=== PATIENT | male | born 1945 | race Caucasian/White ===

== ENCOUNTER 2019-06-06 09:57 | Inpatient (IN) ==
[2019-06-06 11:03] LABS: ALLEN TEST YES; BE -2.2 mmoll (-3.0-3.0); BLOOD TYPE ARTERIAL; METHB 0.9 % (0.0-1.5); O2HB 91.1 % (95.0-99.0); PCO2(98.6) 34 mmHg (35-45); PO2(98.6) 62 mmHg (60-100); SAMPLE BLOOD; SAO2 93.6 % (95.0-100.0); THB 17.2 g/dL (11.5-17.4); pH(98.6) 7.41 (7.35-7.45)
[2019-06-06 11:09] LABS: MODALITY VENTIMASK
[2019-06-06 11:34] LABS: INR 1.06
[2019-06-06 11:35] LABS: PTT 33.4 Seconds (22.3-41.8)
[2019-06-06 11:41] LABS: ALB/GLOB RATIO 1.3; CALCIUM 10.1 mg/dL (8.8-10.2); CREATININE 1.9 mg/dL (0.7-1.2); POTASSIUM 4.5 mmol/L (3.5-5.1); TOTAL BILIRUBIN 1.99 mg/dL (0.20-1.00)
--- NOTE | 2019-06-06 11:41 | Diag Imaging Result Doc PS360 ---
EXAM: CHEST-1 VIEW HISTORY: SOB TECHNIQUE: Single view COMPARISON: None. FINDINGS: The lungs are hyperexpanded. No cardiomegaly. No pulmonary edema. Mild increased interstitial markings in the lower right lung. No pleural effusions identified. IMPRESSION: Small infiltrate or scarring in the right lung base. There is emphysema. Electronically signed by Tomas Gonzalez 06/06/2019 11:39 AM
[2019-06-06 12:08] LABS: BASO# 0.02 X1000 (0.0-0.2); BASO% 0.1 % (0.0-0.8); HEMATOCRIT 44.7 % (42.0-52.0); HEMOGLOBIN 14.3 g/dL (14.0-18.0); IMM GRAN# 0.06 X1000 (0.0-0.04); IMM GRAN% 0.3 % (0.0-0.5); LYMPH# 0.28 X1000 (1.2-3.4); LYMPH% 1.4 % (20.5-51.1); MCH 30.8 PG (27-31); MCV 96.1 FL (81-99); MONO% 8.5 % (1.7-9.3); MPV 12.8 FL (7.4-10.4); NEUT# 17.95 X1000 (1.4-6.5); NEUT% 89.7 % (42.2-75.2); PLT 233 X1000 (130-400); RBC 4.65 XMIL (4.7-6.1); RDW 14.4 % (11.5-14.5); WBC 20.01 X1000 (4.8-10.8)
[2019-06-06 12:12] LABS: BANDS 16 % (0-1); LYMPHS 2 % (21-51); MONO 6 % (1-9); SEGS 76 % (42-75)
[2019-06-06 12:13] LABS: HYPOCHROM 1+
[2019-06-06] MEDS ORDERED: ZOSYN 2.25 GM in NS 50 ML IV ONE (12:14)
[2019-06-06] MEDS ORDERED: NS 1,000 ML IV ONE (12:14)
[2019-06-06] MEDS ORDERED: NS 1,500 ML IV ONE (12:15)
[2019-06-06 12:24] LABS: CK INDEX 2.3 (0.0-2.5); CK-MB 10.05 ng/mL (0.0-5.0)
[2019-06-06] MEDS ORDERED: TYLENOL PO PRN (13:21)
[2019-06-06] MEDS ORDERED: QUELICIN IV ONE (14:06)
[2019-06-06] MEDS ORDERED: VERSED IV ONE ×2 (14:08→15:00)
[2019-06-06] MEDS ORDERED: AMIDATE ONE (14:14)
[2019-06-06] MEDS ORDERED: QUELICIN ONE (14:15)
[2019-06-06 14:23] LABS: AMYLASE 39 U/L (20-200); LIPASE 12 U/L (13-60)
[2019-06-06] MEDS ORDERED: VERSED 100 MG in NS 80 ML IV SCH (14:45)
[2019-06-06] MEDS ORDERED: VERSED ONE (15:09)
--- NOTE | 2019-06-06 15:14 | HISTORY AND PHYSICAL ---
PRIMARY CARE PROVIDER: Unknown. CHIEF COMPLAINT: Shortness of breath. HISTORY OF PRESENT ILLNESS: Mr. Earl Watson is a 74-year-old, male who has a history of dementia, so it is very difficult to get any information from him. He is in the room alone at this time due to the patient quarantine and has been having again a large amount of productive purulent green phlegm, wheezing, rhonchi, and it is reported by ER staff that he has had respiratory distress along with fever for at least 2 days. He is currently on a 50% venturi mask, continuing to desaturate. He has elevated white blood cell count, elevated lactate, infiltrates in the right lower lung. Dr. Gary was consulted by ER staff for further treatment evaluation and this is highly suspicious for community-acquired pneumonia and that is how it will be treated. He has been started on broad-spectrum antibiotics and given the fact that he is in respiratory distress and having desaturations, he will be intubated. PAST MEDICAL HISTORY: Only thing we could find out was dementia and hypertension. SURGICAL HISTORY: Unknown. SOCIAL HISTORY: Unknown other than he lives with his and has dementia and has been having falls. FAMILY HISTORY: Unknown. ALLERGIES: No known drug allergies. HOME MEDICATIONS: Currently none are listed but it is unknown at this time. REVIEW OF SYSTEMS: Ten point review of systems are complete. All are negative for those mentioned above in the HPI. The patient states that he feels like he is breathing better. He denies any pain. Denies fever. PHYSICAL EXAMINATION: VITAL SIGNS: Temperature 97.3 degrees, heart rate 93, respiratory rate 24, blood pressure 131/80. Last documented O2 saturation was 99% on a Venturi mask, but since this last documentation, he had desaturated into the mid to low 80s with increased respiratory rate. GENERAL: Mr. Earl Watson is a 74-year-old, male. He is in somewhat acute distress. He is unable to answer questions appropriately other than asking physically how he feels. He will answer that, but he is still unable to even give his name. HEENT: Atraumatic, normocephalic. Pupils equal, round, reactive to light. Mucous membranes are dry. NECK: Trachea midline. CARDIOVASCULAR: S1, S2. Regular rate and rhythm. No rubs, gallops, murmurs. No lower extremity edema, +1 dorsalis pedal pulses, +2 radial pulses. Negative JVD. Negative carotid bruits. PULMONARY: Mild rhonchi in the bases. Increased work of breathing. Mild accessory muscle use. At the moment, he is not tolerating the venturi mask. GASTROINTESTINAL: Abdomen soft, nontender, nondistended. Positive bowel sounds x4. EXTREMITIES: Moves all extremities equally. Decreased range of motion. NEUROLOGIC: Disoriented, unable to state name or any other questions other than how he is feeling, which could be part of the baseline of his dementia. SKIN: Warm, dry, intact but pale. LABORATORY DATA: White blood cells 20,000, hemoglobin 14, hematocrit 44, platelet count 233,000. INR is 1.06, PTT 33.4. ABGs on Venturi mask, pH 7.41, pCO2 is 34, PO2 62, bicarb 23, base excess - 2.2, saturation 91%, lactate 3.4. Sodium 142, potassium 4.5, BUN 36, creatinine is 1.9, glucose 135, calcium 10.1, bilirubin is 1.99, AST 127, ALT 126, alkaline phosphatase is 833, ammonia 18, CK 434. Troponin 56. Albumin 4.0, amylase 39, lipase 12. Lactate 4.7. Influenza A and B are negative. Blood cultures obtained. IMAGING: Chest x-ray, small infiltrate in the right lung base along with emphysema. ASSESSMENT AND PLAN: 1. Acute hypoxemic respiratory failure, most likely secondary to pneumonia that is located in the right lower lung. He has been started on broad-spectrum antibiotics. He has received IV fluids and currently is having to be advanced on his oxygenation and will be mechanically ventilated as he is in distress. Pulmonary is consulted. 2. Community-acquired pneumonia in the right lower lung. Again, he is on antibiotics and receiving IV fluids. 3. Dementia. 4. Hypertension. Home medications have not been reconciled yet. However, once he is intubated, he will be on propofol which will likely keep his blood pressure on the lower end. 5. Sepsis secondary to pneumonia. However, we do not have a urinalysis available to view as well. Blood cultures are pending. 6. Transaminitis with hyperbilirubinemia. We will get a hepatitis panel and abdominal ultrasound. Amylase, lipase is normal. 7. Acute kidney injury. Unknown if there is a history of kidney disease. Currently, BUN 36, creatinine is 1.9 with a GFR of 35. He is going to be on IV fluid hydration. 8. Deep venous thrombosis prophylaxis, sequential compression devices. Dictated by TUTU Lakhani for Sundar Russell MD cc: TUTU Lakhani MD
--- NOTE | 2019-06-06 15:30 | Diag Imaging Result Doc PS360 ---
EXAM: CHEST-1 VIEW 06/06/2019 HISTORY: sob, intubation TECHNIQUE: AP portable at 1517 COMMENT: There is an endotracheal tube with its tip slightly below the thoracic inlet. There is increased interstitial opacities in both lung bases similar in appearance to the previous study of 1131. IMPRESSION: Interstitial edema versus fibrosis. Electronically signed by Matias Villela 06/06/2019 3:28 PM
--- NOTE | 2019-06-06 15:58 | EKG Report ---
Test Performed on : 06/06/2019 12:54:27 PM Test Reason : REPEAT Blood Pressure : / mmHG Vent. Rate : 100 BPM Atrial Rate : 300 BPM P-R Int : 000 ms QRS Dur : 112 ms QT Int : 380 ms P-R-T Axes : 000 -64 052 degrees QTc Int : 490 ms Accelerated Junctional rhythm. with premature supraventricular complexes. and with frequent premature ventricular complexes. Left axis deviation Low voltage QRS Incomplete right bundle branch block Prolonged QT Abnormal ECG When compared with ECG of 06-JUN-2019 10:35, (Unconfirmed) Junctional rhythm. has replaced Sinus rhythm. Criteria for Septal infarct are no longer present Unconfirmed Result
--- NOTE | 2019-06-06 15:58 | EKG Report ---
Test Performed on : 06/06/2019 10:35:00 AM Test Reason : ED. No order in [place] Blood Pressure : / mmHG Vent. Rate : 097 BPM Atrial Rate : 097 BPM P-R Int : 142 ms QRS Dur : 112 ms QT Int : 362 ms P-R-T Axes : 083 -81 063 degrees QTc Int : 459 ms Sinus rhythm. with marked sinus arrhythmia. Low voltage QRS Incomplete right bundle branch block Left anterior fascicular block Septal infarct , age undetermined Abnormal ECG No previous ECGs available Unconfirmed Result
[2019-06-06 17:08] LABS: URINE SOURCE CLEAN CATCH
--- NOTE | 2019-06-06 17:27 | HISTORY AND PHYSICAL ---
ADDENDUM: The patient was seen and examined by me [id number]. At the moment of my physical exam this patient was already intubated. He is a 74 -year-old male and he has a medical history of dementia and hypertension. He came in with acute hypoxemic respiratory failure. He seems to be having right lower lung pneumonia, heavy thick secretions coming out from the tube, yellowish-green. This likely is a community-acquired pneumonia, but we need to go ahead and test this patient for COVID-19. The ER nurse has been instructed to do that. I do not have previous records from this patient. No family members at the bedside, and like I said, he was intubated, coarse breath sounds bilaterally with mild end expiratory wheezing. We will place the patient on propofol, broad-spectrum antibiotics. We will actually panculture this patient, he will be transferred to the ICU. I agree with the rest of the nurse practitioner's assessment and plan. cc: Sundar Russell MD
[2019-06-06 17:39] LABS: BILIRUBIN URINE NEGATIVE (NEGATIVE); BLOOD URINE MODERATE (NEGATIVE); COLOR YELLOW; GLUCOSE URINE NEGATIVE (NEGATIVE); KETONE URINE NEGATIVE (NEGATIVE); LEUKOCYTES URINE NEGATIVE (NEGATIVE); NITRITE URINE NEGATIVE (NEGATIVE); PH URINE 5.5; PROTEIN URINE 200 mg/dL (NEGATIVE); SP GRAVITY URINE 1.026; TURBIDITY URINE HAZY (CLEAR); UROBILINOGEN URINE NORMAL (NORMAL)
[2019-06-06 17:40] LABS: UR EPITHELIAL CELLS <10 /HPF (<10); URINE BACTERIA NEGATIVE /HPF; URINE RBC <10 /HPF (<10); URINE WBC <10 /HPF (<10)
--- NOTE | 2019-06-06 18:41 | PROVIDER DOCUMENTATION ---
This chart was entered by Shawna Kenyon Scribe, acting as scribe for Gab Phan CRNP. HPI-Respiratory General <Roly Coughlin - Last Filed: 06/06/19 18:40> - General Source: patient, EMS (first response) - History of Present Illness-Resp Quality of Pain: reports: aching Severity in ED: reports: moderate Onset/Duration: reports: 2 days ago Timing: reports: still present, constant, getting worse Exposure: reports: unknown cause Episode Frequency: occasional episodes Current Respiratory Medication Therapy: Initiated see nurses note Modifying Factors: worse with: exertion, coughing Associated Symptoms: reports: cough, fever/chills, muscle/bodyaches, nasal drainage, shortness of breath, wheezing Similar Symptoms Previously?: No Recently seen or treated by another doctor?: No <Gab Phan - Last Filed: 06/06/19 18:41> - General Chief Complaint: Shortness of Breath Stated Complaint: COUGH, FEVER Time Seen by Provider: 06/06/19 10:01 Allergies/Adverse Reactions: Patient Allergies Allergy/AdvReac Type Severity Reaction Status Date / Time No Known Allergies Allergy Verified 06/06/19 10:20 - History of Present Illness-Resp Nature of Presenting Problem: 74 yom presents to the ed via ems (first response) with multiple complaints per his . called 911 this morning due to him having 2 days worsening and constant of sob, body aches, generalized weaknessfever, chills and frequent falls. pt does not answer questions on exam and has purulent discharge from mouth and nose on exam. (Gab Phan) Review of Systems - Adult - REVIEW OF SYSTEMS - ADULT ROS:: ROS per family ( and ems) Constitutional: reports: see HPI, chills, fever Eyes: reports: no symptoms reported Ears, Nose, Mouth & Throat: reports: see HPI, other (nasal and mouth discharge) Cardiovascular: denies: chest pain, palpitations Respiratory: reports: see HPI, cough, shortness of breath, wheezing Gastrointestinal: reports: see HPI, poor appetite. denies: diarrhea, nausea, vomiting Genitourinary: reports: no symptoms reported Musculoskeletal: reports: see HPI, muscle aches Integumentary: reports: no symptoms reported Neurological: reports: see HPI, other (confusion). denies: dizziness/vertigo, headache/migraines Psychiatric: reports: no symptoms reported Endocrine: reports: no symptoms reported Hematologic/Lymphatic: reports: no symptoms reported Allergic/Immunologic: reports: no symptoms reported All Other Systems: Reviewed and Negative <Gab Phan - Last Filed: 06/06/19 18:41> Past History - Adult - PAST MEDICAL HISTORY-ADULT Review of Records: reports: Old Records Reviewed, Nursing Assessment Review, Medications Reviewed, Social history reviewed & non-contributory. Major Childhood Illnesses: reports: denies history Cardiovascular: reports: HTN Respiratory: reports: denies history Gastrointestinal: reports: denies history Genitourinary: reports: denies history Musculoskeletal: reports: denies history Hand Dominance: Right Handed Neurological: reports: dementia Psychiatric: reports: denies history Endocrine/Immune: reports: denies history Other Conditions: reports: denies history - PRIOR SURGERIES/PROCEDURES Surgical/Procedure History: reports: reviewed, not pertinent - IMMUNIZATION STATUS Childhood Immunizations: See Nurse Assessment Flu Vaccine: See Nurse Assessment - FAMILY HISTORY Family History: reviewed, not pertinent - SOCIAL HISTORY Smoking: non-smoker Substance Use: none/never Living Situation: family <Gab Phan - Last Filed: 06/06/19 18:41> Physical Exam-General - PHYSICAL EXAM-ADULT Exam Limited by: pt does not answer questions Initial Vital Signs Reviewed: Yes - CONSTITUTIONAL General Appearance: alert, moderate distress - EYES Eyes: PERRL/EOMI, pink conjunctivae - HEAD, EARS, NOSE, MOUTH & THROAT HENMT: moist mucous membranes, other (purlent drainage coming from sera and nose) - NECK Neck: non-tender, full range of motion, normal inspection - RESPIRATORY Respiratory: respiratory distress, rhonchi, wheezing, increased rate (28), other (mouth breathing) - CARDIOVASCULAR Cardiovascular: tachycardia (108) - CHEST (BREASTS) Chest/Breast: deferred - GASTROINTESTINAL (ABDOMEN) Abdominal Exam: normal bowel sounds, non tender, soft - GENITOURINARY Male Genitalia: deferred Rectal Exam: deferred Hemoccult Exam: deferred - LYMPHATIC Lymphatic: no adenopathy - MUSCULOSKELETAL Back Exam: no CVA tenderness, no vertebral tenderness Extremity: normal capillary refill, pelvis stable Peripheral Pulses: radial (R): 2+, radial (L): 2+, dorsalis-pedis (R): 2+, dorsalis-pedis (L): 2+ - SKIN Integumentary: normal color, normal turgor, warm/dry - PSYCHIATRIC Psych/Mental Status: negative: oriented x 3 (oriented to name only) <Gab Phan - Last Filed: 06/06/19 18:41> Progress - PLAN OF CARE/RESULTS Result Diagrams: 06/06/19 10:22 06/06/19 10:22 <Roly Coughlin - Last Filed: 06/06/19 18:40> - PLAN OF CARE/RESULTS Result Diagrams: 06/06/19 10:22 06/06/19 10:22 - REASSESSMENT Reassessment #1 Time Reassessed: 10:52 Status: unchanged (provider at bedside) Reassessment #2 Time Reassessed: 12:44 Status: worsening (pt is 82% on venti) - EKG 1 Time of EKG reading by physician:: 10:35 EKG Read and Signed by:: Roly Coughlin EKG Interpretation (*Must complete 3 of following elements*): Abnormal Rate: 97 Rhythm: sinus rhythm w/marked sinus arrhythmia [place]: normal QRS: RBB (incomplete), other (low voltage qrs/LAFB) [place] Interval: normal ST Wave: normal Comments: septal infarct, age undetermined - XRAY 1 XRAY: Bilateral XRAY Study: Chest Impression: See EMR Report (IMPRESSION: Small infiltrate or scarring in the right lung base. There is emphysema. Electronically signed by Tomas Gonzalez 06/06/2019 11:39 AM) - CONSULTS/PCP/HOSPITALIST Notification #1 *Consult/PCP/Hospitalist*: hospitalist Time Discussed: 13:10 (spoke with tk) Reason/Comments: will discuss with dr ennis and return call to intubate or not Consult Disposition: Will see in ED, Admit ([id number] called back and will accept the pt but wants dr shaw resp to consult) #2 Consult: dr shaw pulmonary Reason/Comments: phone consult <Gab Phan - Last Filed: 06/06/19 18:41> - PLAN OF CARE/RESULTS Progress/Plan/Lab Results: Vital Signs - 8 hr 06/06/19 13:09 06/06/19 13:15 06/06/19 13:30 Temperature 97.7 F Pulse Rate 93 H 78 77 Respiratory Rate 24 31 H 25 H Blood Pressure 131/80 129/76 124/76 O2 Sat by Pulse Oximetry 99 83 L 96 06/06/19 10:16 Influenza Screen - Final Nasopharyngeal Laboratory Results - last 24 hr 06/06/19 06/06/19 06/06/19 10:22 10:22 10:22 WBC RBC Hgb Hct MCV MCH MCHC RDW Std Deviation Plt Count MPV Immature Gran % (Auto) Neut % (Auto) Lymph % (Auto) [place] % (Auto) Eos % (Auto) Baso % (Auto) Immature Gran # (Auto) Neut # (Auto) Lymph # (Auto) [place] # (Auto) Eos # (Auto) Baso # (Auto) Segmented Neutrophils Band Neutrophils Lymphocytes Monocytes Hypochromia PT INR PTT (Actin FS) Specimen Type Sample Site pH pCO2 pO2 HCO3 Base Excess Oxyhemoglobin ABG O2 Sat (Calculated) ABG O2 Saturation ABG Carboxyhemoglobin ABG Methemoglobin Pavel Test A-a O2 Difference Total Hemoglobin Lactate Blood Gas Modality FiO2 % Sodium 142 Potassium 4.5 Chloride 96 L Carbon Dioxide 23 L Anion Gap 23 BUN 36 H Creatinine 1.9 H Estimated GFR/1.73 m2 35 BUN/Creatinine Ratio 19 Glucose 135 H Calculated Osmolality 293 Calcium 10.1 Total Bilirubin 1.99 H AST 127 H ALT 126 H Alkaline Phosphatase 883 H Ammonia Creatine Kinase 434 H Creatine Kinase Index 2.3 CK-MB (CK-2) 10.05 H Troponin T High Sens 56 H Total Protein 7.0 Albumin 4.0 Globulin 3.0 Albumin/Globulin Ratio 1.3 Amylase Lipase Plasma Lactate 4.7 H* 06/06/19 06/06/19 06/06/19 10:22 10:22 10:22 WBC 20.01 H RBC 4.65 L Hgb 14.3 Hct 44.7 MCV 96.1 MCH 30.8 MCHC 32.0 L RDW Std Deviation 14.4 Plt Count 233 MPV 12.8 H Immature Gran % (Auto) 0.3 Neut % (Auto) 89.7 H Lymph % (Auto) 1.4 L Knox % (Auto) 8.5 Eos % (Auto) 0.0 Baso % (Auto) 0.1 Immature Gran # (Auto) 0.06 H Neut # (Auto) 17.95 H Lymph # (Auto) 0.28 L Knox # (Auto) 1.70 H Eos # (Auto) 0.00 Baso # (Auto) 0.02 Segmented Neutrophils 76 H Band Neutrophils 16 H Lymphocytes 2 L Monocytes 6 Hypochromia 1+ PT 14.0 INR 1.06 PTT (Actin FS) 33.4 Specimen Type Sample Site pH pCO2 pO2 HCO3 Base Excess Oxyhemoglobin ABG O2 Sat (Calculated) ABG O2 Saturation ABG Carboxyhemoglobin ABG Methemoglobin Pavel Test A-a O2 Difference Total Hemoglobin Lactate Blood Gas Modality FiO2 % Sodium Potassium Chloride Carbon Dioxide Anion Gap BUN Creatinine Estimated GFR/1.73 m2 BUN/Creatinine Ratio Glucose Calculated Osmolality Calcium Total Bilirubin AST ALT Alkaline Phosphatase Ammonia Creatine Kinase Creatine Kinase Index CK-MB (CK-2) Troponin T High Sens Total Protein Albumin Globulin Albumin/Globulin Ratio Amylase 39 Lipase 12 L Plasma Lactate 06/06/19 06/06/19 10:45 11:30 WBC RBC Hgb Hct MCV MCH MCHC RDW Std Deviation Plt Count MPV Immature Gran % (Auto) Neut % (Auto) Lymph % (Auto) [place] % (Auto) Eos % (Auto) Baso % (Auto) Immature Gran # (Auto) Neut # (Auto) Lymph # (Auto) [place] # (Auto) Eos # (Auto) Baso # (Auto) Segmented Neutrophils Band Neutrophils Lymphocytes Monocytes Hypochromia PT INR PTT (Actin FS) Specimen Type ARTERIAL Sample Site L RADIAL pH 7.41 pCO2 34 L pO2 62 HCO3 23.0 Base Excess -2.2 Oxyhemoglobin 91.1 L ABG O2 Sat (Calculated) 22.0 ABG O2 Saturation 93.6 L ABG Carboxyhemoglobin 1.80 ABG Methemoglobin 0.9 Pavel Test YES A-a O2 Difference 67.0 Total Hemoglobin 17.2 Lactate 3.40 H Blood Gas Modality [place] FiO2 % 24.0 Sodium Potassium Chloride Carbon Dioxide Anion Gap BUN Creatinine Estimated GFR/1.73 m2 BUN/Creatinine Ratio Glucose Calculated Osmolality Calcium Total Bilirubin AST ALT Alkaline Phosphatase Ammonia 18 Creatine Kinase Creatine Kinase Index CK-MB (CK-2) Troponin T High Sens Total Protein Albumin Globulin Albumin/Globulin Ratio Amylase Lipase Plasma Lactate Orders Category Date Time Status Admit - [facility] Routine AdmDCTranf 06/06/19 13:21 Active Cardiac Monitoring NOW Care 06/06/19 10:16 Active IV Insertion NOW Care 06/06/19 10:16 Completed Isolation [Isolation Precautions Setup] NOW Care 06/06/19 13:10 Active NEWS Score >or=5:Order NEWS Bundle S.O. NOW Care 06/06/19 10:15 Active Notify Provider of NEWS Score NOW Care 06/06/19 10:16 Active Nursing- MD Consult Request ROUTINE Care 06/06/19 13:21 Completed Update & Confirm Home Medicati ROUTINE Care 06/06/19 13:21 Active Physician/Provider Consults Routine Cons 06/06/19 13:21 Ordered CHEST-1 VIEW [RAD] Stat Exams 06/06/19 10:16 Completed ABG [RESP] Routine Lab 06/06/19 10:45 Completed AMMONIA [CHEM] Stat Lab 06/06/19 11:30 Completed AMYLASE [CHEM] Stat Lab 06/06/19 10:22 Completed BLOOD CULTURE [BLDCUL] Stat Lab 06/06/19 10:40 Results CBC WITH DIFF [HEME] Stat Lab 06/06/19 10:22 Completed CK PROFILE [SP CHEM] Stat Lab 06/06/19 10:22 Completed COMPREHENSIVE METABOLIC PANEL [CHEM] Stat Lab 06/06/19 10:22 Completed Flu Swab [INFLUENZA SCREEN A/B] Stat Lab 06/06/19 10:16 Completed LACTATE, PLASMA [CHEM] Q3H Lab 06/06/19 10:22 Completed LACTATE, PLASMA [CHEM] Q3H Lab 06/06/19 16:25 Completed LACTATE, PLASMA [CHEM] Q3H Lab 06/06/19 16:30 Uncollected LIPASE [CHEM] Stat Lab 06/06/19 10:22 Completed PROTIME WITH INR [COAG] Stat Lab 06/06/19 10:22 Completed PTT [COAG] Stat Lab 06/06/19 10:22 Completed SPUTUM CULTURE WITH GRAM STAIN [RM] Routine Lab 06/06/19 13:21 Uncollected TROPONIN T HIGH SENSITIVITY Stat Lab 06/06/19 10:22 Completed URINALYSIS W/POSS RFLX CULT [URINALYSIS] Stat Lab 06/06/19 15:10 Completed 0.9% Sodium Chloride Inj [Ns] 1,000 ml Med 06/06/19 13:30 Active IV 75 mls/hr 0.9% Sodium Chloride Inj [Ns] 1,000 ml Med 06/06/19 12:14 Discontinued IV 999 mls/hr 0.9% Sodium Chloride Inj [Ns] 1,500 ml Med 06/06/19 12:15 Discontinued IV 999 mls/hr Acetaminophen [Tylenol] Med 06/06/19 13:21 Active 650 mg PO Q4H PRN PRN CefEPIME [Maxipime] 1 gm Med 06/06/19 13:30 Active 0.9% Sodium Chloride Inj [Ns] 50 ml IV Q12H Piperacillin/Tazobactam [Zosyn] 2.25 gm Med 06/06/19 12:14 Discontinued 0.9% Sodium Chloride Inj [Ns] 50 ml IV NOW O2 Per Protocol Stat Oth 06/06/19 10:16 Completed Oxygen Device Routine Oth 06/06/19 13:21 Completed Pulse Oximetry Routine Ot 06/06/19 13:21 Completed Transfer/Admit Order [TRANSFER] Routine Transfer 06/06/19 13:16 Ordered Procedures - INTUBATION Time of Intubation: 14:44 Intubation Method: orotracheal Equipment: ETT, Glidescope Tube Size (cm): 7.5 Pretreated with 100% Oxygen?: Yes Breath Sounds after Intubation: equal ETT Primary Tube Confirmation: Capnometry CO2 Change, Direct Visualization, C hest Rise and Fall, Tube placement verified on XRAY Intubation Complications: no complications Vent Settings: See Respiratory Therapy Notes <Gab Phan - Last Filed: 06/06/19 18:41> Departure <Roly Coughlin - Last Filed: 06/06/19 18:40> - Departure Date of Disposition Decision: 06/06/19 Time of Disposition Decision: 13:25 Certified Medical Emergency: Emergent - Critical Care Note This patient required my direct & personal management of CC.: Yes Total Time (mins): 42 Critical Care Statement: This patient required my direct personal management to treat or rule out processes, the absence of which, could potentiallly result in sudden, clinically significant life or limb threatening deterioration. <Gab Phan - Last Filed: 06/06/19 18:41> - Departure DIAGNOSIS: Pneumonia Qualifiers: Pneumonia type: due to unspecified organism Laterality: right Lung location: unspecified part of lung Qualified Code(s): J18.9 - Pneumonia, unspecified organism Sepsis Qualifiers: Sepsis type: sepsis due to unspecified organism Sepsis acute organ dysfunction status: unspecified Qualified Code(s): A41.9 - Sepsis, unspecified organism Disposition: ADMITTED INPATIENT 09 Condition: Critical Attestation - Physician/ CANDIDO Attestation The physician spent face to face time with patient:: Yes Advanced Practice Provider documentation review:: Supervising physician onsite and consulted in the evaluation and care of this patient. The physician did have a face to face encounter with the patient. <Roly Coughlin - Last Filed: 06/06/19 18:40> - Physician/ CANDIDO Attestation Patient care was provided by Advanced Practice Provider:: Yes Advanced Practice Provider:: Gab Phan Advanced Practice Provider documentation review:: The Mid-level provider docu mentation, treatment plan and medical decision making was reviewed by the physician who agrees with all treatment and medical decision making by the MLP. The physician spent face to face time with patient:: No Advanced Practice Provider documentation review:: Supervising physician onsite and consulted in the evaluation and care of this patient. The physician did not have a face to face encounter with the patient. <Gab Phan - Last Filed: 06/06/19 18:41> This chart was documented by the indicated scribe, (Shawna Kenyon Scribe) and accurately reflects the services I performed and decisions made by , Gab Lawson CRNP, as attested by the provider's signature.
[2019-06-06] MEDS: NS 1,000 ML IV SCH (18:47)
[2019-06-06] MEDS: ZYVOX 600 MG/D5W 600 MG/300 ML IVPB IV SCH (18:48)
[2019-06-06] MEDS: DIPRIVAN 1% 1,000 MG/100 ML BOTTLE IV SCH (20:08)
[2019-06-06] MEDS: MAXIPIME 1 GM in NS 50 ML IV SCH (20:16)
--- NOTE | 2019-06-06 20:25 | Diag Imaging Result Doc PS360 ---
EXAM: US ABDOMEN-COMPLETE 06/06/2019 HISTORY: elevated liver enzymes TECHNIQUE: Abdominal ultrasound COMMENT: The pancreatic head and body are normal in appearance. The aorta and inferior vena cava are normal where there are visible. There is a target appearing lesion adjacent to the diaphragm in the left hepatic lobe measuring 1.2 cm in diameter and another measuring 1.7 cm in diameter anterior to the inferior vena cava. Numerous smaller lesions are present in the liver is markedly inhomogeneous in appearance. There is antegrade flow in the portal vein. The gallbladder is clear and nontender. There is no evidence of biliary dilatation the common bile duct measuring 4 mm. The right kidney is atrophic in appearance and hyperechoic with the right kidney only measuring 6.1 cm in length. The left kidney is somewhat hypertrophic without evidence of hydronephrosis, and the spleen is not enlarged. The right kidney measures 12.5 cm in length. IMPRESSION: Extensive hepatic metastatic disease. Atrophy of the right kidney. Electronically signed by Matias Villela 06/06/2019 8:22 PM
[2019-06-06] MEDS: DUONEB (A & A) INH SCH (20:38)
--- NOTE | 2019-06-06 22:07 | PULMONOLOGY CONSULTATION ---
DATE: 06/06/2019 REASON FOR CONSULTATION: Respiratory failure. HISTORY OF PRESENT ILLNESS: Mr. Watson is a 74-year-old with history of dementia, who was brought to the emergency room by EMS. The patient's called 911 and reported patient with having two days of shortness of breath, weakness, fevers, chills, and falling. The patient has dementia and will not answer questions. He has not previously been to this hospital. The patient had gross purulence noted in his nose and mouth in the emergency room. He was initially placed on supplemental oxygen, but had progressive respiratory failure requiring intubation and mechanical ventilation. PAST MEDICAL HISTORY: 1. Dementia 2. Hypertension. SURGICAL HISTORY: Unknown. SOCIAL HISTORY: Unknown. FAMILY HISTORY: Unknown. MEDICATIONS: Medications from the external medical medication history only reveals lisinopril/hydrochlorothiazide. REVIEW OF SYSTEMS: Cannot be obtained. PHYSICAL EXAMINATION: General: Well-nourished, chronically ill-appearing male on mechanical ventilation. Sedation was not discontinued. Vital Signs: Blood pressure 103/72, heart rate 74, respiratory rate 18, oxygen saturation 96%. HEENT: Pupils are midpoint and reactive. Oropharynx appears dry. There are some secretions within the nasal passages. Chest: Reveals coarse rhonchi bilaterally. Cardiac Exam: S1, S2. Abdomen: Soft. Extremities: Without edema. LABORATORIES: White blood count 20,000, hemoglobin 14.3, platelet count 233,000. INR 1.06. Chemistry: Sodium 142, potassium 4.5, chloride 96, bicarbonate 23, BUN 36, creatinine 1.9, glucose 135, alkaline phosphatase 883, bilirubin 1.99, AST 127, ALT 126. IMAGING: Chest x-ray reveals endotracheal tube in good position with mild infiltrate at the right base. IMPRESSION: A 74-year-old with 1. Acute hypoxemic respiratory failure. 2. Community-acquired pneumonia with grossly purulent secretions in endotracheal tube along with significant leukocytosis. 3. Hypertension. 4. Elevated transaminases with cholestasis picture. 5. Acute kidney injury. RECOMMENDATION: 1. Continue full ventilatory support. 2. Continue current antibiotics, pending results of blood culture and sputum culture which has been requested. 3. Condition sedation for comfort. 4. Routine bronchial hygiene. 5. Agree with IV fluids. 6. Prognosis is guarded. TIME SPENT: With critical care management, one hour. cc: Buddy Gary MD
[2019-06-06] MEDS: PROTONIX IV SCH (23:20)
[2019-06-06] MEDS: SODIUM CHLORIDE 0.9% INJ SCH (23:20)
[2019-06-07] MEDS: DUONEB (A & A) INH SCH ×2 (00:26→05:09)
[2019-06-07] MEDS: DIPRIVAN 1% 1,000 MG/100 ML BOTTLE IV SCH ×3 (04:34→22:00)
[2019-06-07] MEDS: ZYVOX 600 MG/D5W 600 MG/300 ML IVPB IV SCH ×2 (04:36→15:42)
[2019-06-07 04:52] LABS: ALLEN TEST YES; BLOOD TYPE ARTERIAL; HCO3-(ACT) 21.8 mmoll (20.0-26.0); METHB 1.1 % (0.0-1.5); O2(CT) 18.2 mL/dL (15.0-23.0); PCO2(98.6) 31 mmHg (35-45); PO2(98.6) 169 mmHg (60-100); SAMPLE BLOOD; SAO2 99.6 % (95.0-100.0); SRATE 16 BPM; THB 13.1 g/dL (11.5-17.4); TVOL 450 mL; pH(98.6) 7.41 (7.35-7.45)
[2019-06-07 04:53] LABS: MODALITY VENTILATOR
[2019-06-07 06:19] LABS: HEMATOCRIT 37.2 % (42.0-52.0); HEMOGLOBIN 11.5 g/dL (14.0-18.0); MCHC 30.9 g/dL (33-37); MCV 97.1 FL (81-99); MPV 12.6 FL (7.4-10.4); RBC 3.83 XMIL (4.7-6.1); RDW 14.3 % (11.5-14.5); WBC 17.09 X1000 (4.8-10.8)
--- NOTE | 2019-06-07 06:34 | Diag Imaging Result Doc PS360 ---
CHEST-PORTABLE - 06/07/2019 INDICATION: respiratory failure COMPARISON: 06/06/2019 FINDINGS: Stable endotracheal tube in good position. Stable advanced COPD. There is been slight worsening in the ill-defined interstitial infiltrates in both lung bases. Heart size and pulmonary vascularity remain normal. IMPRESSION: Worsening ill-defined infiltrates in the lung bases. Compatible with pneumonia, viral infection, or pulmonary edema. Electronically signed by Good Costello 06/07/2019 6:31 AM
[2019-06-07 06:42] LABS: ALB/GLOB RATIO 0.7; ALBUMIN 2.5 g/dL (3.5-5.0); CALCIUM 8.7 mg/dL (8.8-10.2); CREATININE 1.4 mg/dL (0.7-1.2); MAGNESIUM 2.1 mg/dL (1.5-2.7); PHOSPHORUS 3.9 mg/dL (2.7-4.5); POTASSIUM 3.7 mmol/L (3.5-5.1); TOTAL BILIRUBIN 0.92 mg/dL (0.20-1.00); TOTAL PROTEIN 5.9 g/dL (6.3-8.3)
[2019-06-07] MEDS: NS 1,000 ML IV SCH ×2 (07:34→15:42)
[2019-06-07] MEDS: MAXIPIME 1 GM in NS 50 ML IV SCH ×2 (08:43→20:44)
[2019-06-07] MEDS: LOVENOX SUBQ SCH (08:43)
--- NOTE | 2019-06-07 09:44 | Diag Imaging Result Doc PS360 ---
CHEST-PORTABLE - 06/07/2019 9:19 AM INDICATION: OG placement verification COMPARISON: 5:26 AM FINDINGS: There is an orogastric tube entering the stomach. Recommend slight advancement. The endotracheal tube remains in good position. IMPRESSION: Orogastric tube is in the stomach, however slight advancement recommended, about 5 cm, for optimal placement. Electronically signed by Good Costello 06/07/2019 9:42 AM
[2019-06-07 11:10] LABS: HEPATITIS PROFILE ACUTE SEE COMMENTS
--- NOTE | 2019-06-07 12:19 | PROGRESS NOTE ---
DATE: 06/07/2019 SUBJECTIVE: The patient is still on mechanical ventilation and sedated. X-ray today showed worsening infiltrates in the lung bases, compatible with pneumonia, viral infection, and pulmonary edema. He has been placed on broad-spectrum antibiotics. I will go ahead and place an NG tube to start feeding this patient as well. I do not think he is going to be extubated any time soon. For now, we will continue with same management. OBJECTIVE: Vital Signs: Temperature 97.8 degrees, pulse 60, respiratory rate 23, blood pressure 110/69, oxygen saturation 99% on mechanical ventilation. HEENT: Head normocephalic, no trauma. PERRLA. Neck: Supple. No JVD. Central trachea. Chest: Coarse breath sounds bilaterally with rhonchi bilaterally as well. Abdomen: Soft. Extremities: No edema, no clubbing, no cyanosis. Neurological: The patient is on mechanical ventilation and sedated. LABORATORY: WBC 17, hemoglobin 11.5, hematocrit 37.2, platelets 188,000. Sodium 140, potassium 3.7, chloride 108, bicarbonate 19, BUN 39, creatinine 1.4, glucose 93, calcium 8.7, total bilirubin 0.9. AST 84, ALT 82, alkaline phosphatase 652, albumin 2.5. ASSESSMENT AND PLAN: 1. Acute hypoxemic respiratory failure, likely due to community-acquired pneumonia. Given his core presentation, also we are going to rule out Coronavirus Disease 2019. Continue with mechanical ventilation, broad-spectrum antibiotics, breathing treatment when able. Pulmonary Department on board. 2. Sepsis due to community-acquired pneumonia, seems to be bilaterally but mostly on the right side, continue with same treatment. 3. Dementia, aware. 4. Hypertension. His blood pressure actually has been in the lower side. We will continue with the same management for now. We will avoid blood pressure medication at this point. 5. Transaminitis, likely due to sepsis, this is getting better. 6. Acute kidney injury. His BUN went up a little bit from 36 to 39. Creatinine is trending down, and we will monitor. Continue with intravenous fluids. 7. Nutritional status. I will put in a nasogastric tube today and start feeding this patient. 8. Deep vein thrombosis prophylaxis with sequential compression devices. cc: Sundar Russell MD
--- NOTE | 2019-06-07 16:39 | PULMONOLOGY PROGRESS NOTE ---
DATE: 06/07/2019 SUBJECTIVE: The patient is on mechanical ventilation. He appears comfortable. He does not respond to painful stimuli. OBJECTIVE: Vital Signs: The patient has been afebrile for the last 24 hours. Blood pressure 95/65, heart rate 59, respiratory rate 15, oxygen saturation 99%. HEENT: Pupils are equal and reactive. Oropharynx appears clear. neck: Neck is supple. pulmonary: Chest reveals coarse rhonchi bilaterally. Cardiac: S1-S2. Abdomen: Abdomen is soft with diminished bowel sounds. Extremities: Without edema. LABORATORIES: White count reveals bibasilar infiltrates which are slightly worse than yesterday. White blood count 17.09, hemoglobin 11.5, platelet count 188,000. Sodium 140, potassium 3.7, chloride 108, bicarbonate 19, BUN 39, creatinine 1.4, bilirubin 0.92, AST 84, ALT 82, alkaline phosphatase 652. IMPRESSION: A 74-year-old with: 1. Acute hypoxemic respiratory failure. 2. Community-acquired pneumonia with bilateral infiltrates. The patient may have a component of aspiration. 3. Elevated transaminases with an alkaline phosphatase predominant. This has improved. 4. Acute renal injury with decreasing creatinine. PLAN: 1. Continue full ventilatory support. Tidal volumes have been adjusted. 2. Continue current antibiotic regimen. 3. Continue IV fluids. Consider Clinimix. 4. Continue Lovenox. We will consider increasing dose if the creatinine continues to improve. Time spent in critical care management: 40 minutes cc: Buddy Gary MD MTDD
[2019-06-07] MEDS: SODIUM CHLORIDE 0.9% INJ SCH (20:44)
[2019-06-07] MEDS: PROTONIX IV SCH (20:44)
[2019-06-08 04:46] LABS: BE -3.8 mmoll (-3.0-3.0); BLOOD TYPE ARTERIAL; HCO3-(ACT) 21.9 mmoll (20.0-26.0); METHB 1.1 % (0.0-1.5); O2(CT) 26.6 mL/dL (15.0-23.0); O2HB 97.4 % (95.0-99.0); PCO2(98.6) 33 mmHg (35-45); PO2(98.6) 144 mmHg (60-100); SAMPLE BLOOD; SAO2 99.5 % (95.0-100.0); SRATE 15 BPM; THB 19.3 g/dL (11.5-17.4); TVOL 600 mL; pH(98.6) 7.39 (7.35-7.45)
[2019-06-08 04:49] LABS: ALLEN TEST YES; MODALITY VENTILATOR
[2019-06-08] MEDS: ZYVOX 600 MG/D5W 600 MG/300 ML IVPB IV SCH ×2 (04:58→16:54)
[2019-06-08 05:07] LABS: HEMATOCRIT 35.1 % (42.0-52.0); HEMOGLOBIN 11.4 g/dL (14.0-18.0); MCH 31.5 PG (27-31); MCHC 32.5 g/dL (33-37); MPV 12.4 FL (7.4-10.4); RBC 3.62 XMIL (4.7-6.1); RDW 14.4 % (11.5-14.5); WBC 20.59 X1000 (4.8-10.8)
[2019-06-08 05:14] LABS: ALB/GLOB RATIO 0.8; ALBUMIN 2.6 g/dL (3.5-5.0); CREATININE 1.4 mg/dL (0.7-1.2); MAGNESIUM 2.2 mg/dL (1.5-2.7); PHOSPHORUS 2.4 mg/dL (2.7-4.5); POTASSIUM 3.5 mmol/L (3.5-5.1); TOTAL BILIRUBIN 0.67 mg/dL (0.20-1.00); TOTAL PROTEIN 5.9 g/dL (6.3-8.3)
[2019-06-08] MEDS: DIPRIVAN 1% 1,000 MG/100 ML BOTTLE IV SCH (05:45)
[2019-06-08] MEDS: NS 1,000 ML IV SCH ×2 (05:45→11:59)
[2019-06-08] MEDS: DUONEB (A & A) INH SCH (06:30)
--- NOTE | 2019-06-08 08:42 | Diag Imaging Result Doc PS360 ---
EXAM: CHEST-PORTABLE 06/08/2019 HISTORY: respiratory failure TECHNIQUE: AP portable at 0541 COMMENT: There is interstitial opacity in both lung bases which has not changed since 06/07/2019. The endotracheal tube remains in place. There is an NG tube which passes below the diaphragm into the stomach. IMPRESSION: Pulmonary edema. Electronically signed by Matias Villela 06/08/2019 8:40 AM
[2019-06-08] MEDS: LOVENOX SUBQ SCH (08:53)
[2019-06-08] MEDS: MAXIPIME 1 GM in NS 50 ML IV SCH ×2 (08:53→20:51)
--- NOTE | 2019-06-08 12:45 | PROGRESS NOTE ---
DATE: 06/08/2019 SUBJECTIVE: The patient is still intubated and on mechanical ventilation. No acute events overnight. We have started this patient on nutrition through the OG tube, and he seems to be tolerating that. X-ray showed some pulmonary edema. I will decrease the rate of the normal saline since he is getting now nutrition, and I will continue with the same management. OBJECTIVE: Vital Signs: Temperature 98.3 degrees, pulse 67, respiratory rate 23, blood pressure 112/69, oxygen saturation 100% on mechanical ventilation. HEENT: Head normocephalic, no trauma. PERRLA. Neck: Supple. No JVD. No masses. Central trachea. Chest: Coarse breath sounds bilaterally with rhonchi bilaterally as well. Abdomen: Soft. Extremities: No edema, no clubbing, no cyanosis. Neurological: The patient is on mechanical ventilation and sedated. LABORATORY: WBC 20.5, hemoglobin 11.4, hematocrit 25.1, platelets 188,000. Sodium 139, potassium 3.5, chloride 107, bicarbonate 20, BUN 36, creatinine 1.4, glucose 124, calcium 9, total bilirubin 0.6. AST 84, ALT 76, alkaline phosphatase 700, albumin 2.6. ASSESSMENT AND PLAN: 1. Acute hypoxemic respiratory failure, likely due to community-acquired pneumonia. We are also going to rule out Coronavirus Disease 2019 on this patient, but this is unlikely. We will continue with mechanical ventilation, broad-spectrum antibiotics, breathing treatment and oxygen supplementation. Pulmonary Department on board. 2. Sepsis due to community-acquired pneumonia. Continue with the same management. 3. Dementia, aware. 4. Hypertension. Actually, the blood pressure seems to be in the lower side. Abdomen seems to be normal. Initially was in the lower side in the 90s, but now seems to be more stable. 5. Transaminitis, likely due to sepsis, stable, about the same compared with yesterday. 6. Acute kidney injury. BUN improved a little bit compared with yesterday. Creatinine is about the same. His urine output is not great. It is actually low. Continue with intravenous fluids. 7. Nutritional status, continue with nutrition through the nasogastric tube. CRITICAL CARE TIME: 35 minutes. cc: Sundar Russell MD
[2019-06-08 14:55] LABS: ALLEN TEST YES; BE -2.9 mmoll (-3.0-3.0); BLOOD TYPE ARTERIAL; HCO3-(ACT) 22.6 mmoll (20.0-26.0); METHB 1.2 % (0.0-1.5); O2(CT) 27.1 mL/dL (15.0-23.0); O2HB 96.6 % (95.0-99.0); PCO2(98.6) 31 mmHg (35-45); PO2(98.6) 116 mmHg (60-100); SAMPLE BLOOD; SAO2 98.7 % (95.0-100.0); THB 19.9 g/dL (11.5-17.4); pH(98.6) 7.42 (7.35-7.45)
[2019-06-08 14:56] LABS: MODALITY VENTILATOR
--- NOTE | 2019-06-08 18:56 | PULMONOLOGY PROGRESS NOTE ---
DATE: 06/08/2019 SUBJECTIVE: The patient's sedation has been held. He does move, but he does not open his eyes or follow commands. OBJECTIVE: Vital Signs: The patient has been afebrile for the last 24 hours. Blood pressure 146/83, heart rate 77, respiratory rate 20. Oxygen saturation 100%. HEENT: Pupils are equal and reactive. Oropharynx appears clear. Neck: Is supple. Chest: Reveals rhonchi bilaterally. Cardiac: S1-S2. Abdomen: Aoft with diminished bowel sounds. Extremities: Without edema. LABORATORIES: Chest x-ray reveals mild increased interstitial edema. White blood count 20.59, hemoglobin 11.4, platelet count 188,000. Sodium 139, potassium 3.5, chloride 107, bicarbonate 20, BUN 36, creatinine 1.4, albumin 5.0. Arterial blood gas at 4:35 this morning pH 7.39, pCO2 of 33, pO2 of 144. Arterial blood gas after 4 hour CPAP trial pH 7.42, pCO2 of 31, PO2 of 116. IMPRESSION: A 74-year-old with 1. Acute hypoxemic respiratory failure. 2. Community-acquired pneumonia. 3. Abnormal liver function studies which remained stable. 4. Acute renal injury. 5. Dementia. DISCUSSION: A 74-year-old with problems outlined above. The patient has been on a weaning trial today and has done relatively well, but he has a very poor cough/gag reflex. His mental status is poor. His sedation will be held. He will be followed overnight to see if his mental status will improve to help increase chances of successful extubation. PLAN: 1. Hold sedation. 2. Continue ventilatory support. 3. Continue current antibiotic regimen. 4. Repeat weaning trial tomorrow. Time spent in critical care management: 40 minutes cc: Buddy Gary MD [facility] HOSPITALThelma
[2019-06-08] MEDS: PROTONIX IV SCH (20:51)
[2019-06-08] MEDS: SODIUM CHLORIDE 0.9% INJ SCH (20:51)
[2019-06-09] MEDS: ZYVOX 600 MG/D5W 600 MG/300 ML IVPB IV SCH ×2 (04:16→17:00)
[2019-06-09 05:03] LABS: ALLEN TEST YES; BE -2.9 mmoll (-3.0-3.0); BLOOD TYPE ARTERIAL; HCO3-(ACT) 22.6 mmoll (20.0-26.0); METHB 1.3 % (0.0-1.5); O2(CT) 16.4 mL/dL (15.0-23.0); O2HB 95.8 % (95.0-99.0); PCO2(98.6) 38 mmHg (35-45); PO2(98.6) 99 mmHg (60-100); SAMPLE BLOOD; SAO2 98.6 % (95.0-100.0); THB 12.1 g/dL (11.5-17.4); pH(98.6) 7.37 (7.35-7.45)
[2019-06-09 05:04] LABS: MODALITY VENTILATOR
[2019-06-09 06:37] LABS: HEMATOCRIT 35.9 % (42.0-52.0); HEMOGLOBIN 11.4 g/dL (14.0-18.0); MCHC 31.8 g/dL (33-37); MCV 97.6 FL (81-99); MPV 12.6 FL (7.4-10.4); RBC 3.68 XMIL (4.7-6.1); RDW 14.5 % (11.5-14.5); WBC 20.34 X1000 (4.8-10.8)
[2019-06-09 06:57] LABS: AGAP 13; ALB/GLOB RATIO 0.6; ALBUMIN 2.4 g/dL (3.5-5.0); ALKALINE PHOSPHATASE 743 U/L (32-122); BUN 28 mg/dL (8-22); CALCIUM 8.9 mg/dL (8.8-10.2); CHLORIDE 110 mmol/L (98-107); COSMO 292; ESTIMATED GFR > 60; GLUCOSE 96 mg/dL (70-104); GOT 88 U/L (10-34); GPT 75 U/L (10-44); POTASSIUM 3.4 mmol/L (3.5-5.1); SODIUM 144 mmol/L (136-145); TCO2 21 mmol/L (25-35); TOTAL BILIRUBIN 1.06 mg/dL (0.20-1.00); TOTAL PROTEIN 6.1 g/dL (6.3-8.3)
--- NOTE | 2019-06-09 07:19 | Diag Imaging Result Doc PS360 ---
EXAM: CHEST-PORTABLE 06/09/2019 HISTORY: respiratory failure TECHNIQUE: AP portable at 0535 COMMENT: There is an endotracheal tube with its tip thoracic inlet. There is an NG tube which passes below the diaphragm. There are interstitial opacities in both lung bases which have not changed appreciably since 06/08/2019. There has been no appreciable change since 06/07/2019. IMPRESSION: Interstitial pulmonary edema and/or fibrosis. Electronically signed by Matias Villela 06/09/2019 7:17 AM
[2019-06-09] MEDS: LOVENOX SUBQ SCH (08:35)
[2019-06-09] MEDS: MAXIPIME 1 GM in NS 50 ML IV SCH ×2 (08:35→21:17)
[2019-06-09] MEDS: NS 1,000 ML IV SCH (09:40)
--- NOTE | 2019-06-09 10:47 | PROGRESS NOTE ---
DATE: 06/09/2019 SUBJECTIVE: The patient is still intubated and on mechanical ventilation. When I saw the patient, he was not on any sedation and the ventilator was in the BiPAP mode, but the patient was really lethargic. He was able to open his eyes on and off. He was able to move a little bit his head when I called his name, but he is not following commands. His nutrition through the NG tube has been stopped momentarily because he is going to be on a weaning trial. X-ray showed pulmonary edema and/or fibrosis. OBJECTIVE: Vital Signs: Temperature 97.9 degrees, pulse 71, respiratory rate 22, blood pressure 141/81, oxygen saturation 99 on the CPAP machine mechanical ventilation. HEENT: Head normocephalic. No trauma. PERRLA. Neck: Supple. No JVD. No masses. Central trachea. Chest: Coarse breath sounds bilaterally with rhonchi bilaterally as well. Abdomen: Soft. Extremities: No edema. Neurological: This patient is on mechanical ventilation. He is not getting sedation at this moment. He is able to open his eyes a little bit, but he is really lethargic. He was able to move his head when I called his name, but is not consistent. He is not following commands for me. LABORATORY DATA: WBC 20.3, hemoglobin 11.4, hematocrit 35.9, platelets 210,000. Sodium 144, potassium 3.4, chloride 110, bicarbonate 21, BUN 28, creatinine 1, glucose 96, calcium 8.9, total bilirubin 1, AST 88, ALT 75, alkaline phosphatase 743. ASSESSMENT AND PLAN: 1. Acute hypoxemic respiratory failure likely due to community-acquired pneumonia. We are also ruling out coronavirus on this patient, but this is unlikely. We will continue with mechanical ventilation for now. We are trying to do weaning trials. This patient is really lethargic. His urine output is getting better as well as the BUN and creatinine. Liver function tests about the same. 2. Sepsis due to community-acquired pneumonia. Continue with same management. 3. Dementia, aware. 4. Hypertension. Actually the blood pressure seems to be stable. 5. Transaminitis, likely due to sepsis, stable compared with yesterday. No changes. 6. Acute kidney injury. BUN and creatinine improving as well as the urine output. Continue with same treatment. 7. Nutritional status. He has been getting nutrition through the NG tube. He is not having residuals. At this moment, he is not getting nutrition because we are going to try to wean this patient off the ventilator. cc: Sundar Russell MD
--- NOTE | 2019-06-09 19:15 | PULMONOLOGY PROGRESS NOTE ---
DATE: 06/09/2019 SUBJECTIVE: The patient opens his eyes when his name is called. He appears to be comfortable and has been on a spontaneous breathing trial overnight. OBJECTIVE: Vital Signs: The patient has been afebrile for the last 24 hours. Blood pressure 142/78, heart rate 81, respiratory rate 23, oxygen saturation 99%. HEENT: Pupils are equal and reactive. Oropharynx evaluation is limited but appears clear. Neck: Supple. Chest: Reveals rhonchi bilaterally. Cardiac exam: S1, S2. Abdomen: Soft. Extremities: Reveal trace edema. LABORATORY DATA: Arterial blood gas reveals a pH of 7.37, pCO2 of 38, pO2 of 99 on spontaneous breathing trial. Sodium 144, potassium 3.4, chloride 110, bicarbonate 21, BUN 28, creatinine 1.0, white blood count 20,000, hemoglobin 11.4, platelet count 210,000. MICROBIOLOGY: Reveals Haemophilus influenzae, which is sensitive to ampicillin. IMAGING: Chest x-ray reveals infiltrates in both lung bases without significant change. IMPRESSION: A 74-year-old with: 1. Acute hypoxemic respiratory failure. 2. Haemophilus influenzae pneumonia. 3. Abnormal liver function studies. 4. Acute renal injury. 5. Dementia. DISCUSSION: A 74-year-old with problems outlined above. The patient has been on a spontaneous breathing trial through the night, which he has tolerated. PLAN: 1. Continue current antibiotic regimen. 2. Extubate this morning. 3. Bronchial hygiene. Time spent in critical care management evaluating patient before and after extubation: Greater than 30 minutes. x cc: Buddy Gary MD MTDD
[2019-06-09] MEDS: PROTONIX IV SCH (21:18)
[2019-06-09] MEDS: SODIUM CHLORIDE 0.9% INJ SCH (21:18)
[2019-06-10] MEDS: ZYVOX 600 MG/D5W 600 MG/300 ML IVPB IV SCH (03:32)
[2019-06-10 04:31] LABS: ALLEN TEST YES; BE -2.7 mmoll (-3.0-3.0); BLOOD TYPE ARTERIAL; HCO3-(ACT) 22.8 mmoll (20.0-26.0); O2(CT) 20.9 mL/dL (15.0-23.0); O2HB 96.9 % (95.0-99.0); PCO2(98.6) 40 mmHg (35-45); PO2(98.6) 142 mmHg (60-100); SAMPLE BLOOD; SAO2 99.4 % (95.0-100.0); THB 15.2 g/dL (11.5-17.4); pH(98.6) 7.36 (7.35-7.45)
[2019-06-10 04:32] LABS: MODALITY CANNULA
[2019-06-10 06:10] LABS: HEMATOCRIT 35.5 % (42.0-52.0); HEMOGLOBIN 10.9 g/dL (14.0-18.0); MCH 30.2 PG (27-31); MCHC 30.7 g/dL (33-37); MCV 98.3 FL (81-99); MPV 11.7 FL (7.4-10.4); RBC 3.61 XMIL (4.7-6.1); RDW 14.3 % (11.5-14.5); WBC 16.57 X1000 (4.8-10.8)
--- NOTE | 2019-06-10 06:13 | Diag Imaging Result Doc PS360 ---
EXAM: CHEST-PORTABLE HISTORY: respiratory failure TECHNIQUE: Two views COMPARISON: 06/09/2019 FINDINGS: The lungs are well expanded. No cardiomegaly. Mild vascular distention. Worsening basilar infiltrates. There are tiny pleural effusions. A nasogastric tube overlies the esophagus and stomach. IMPRESSION: Mild interval worsening Electronically signed by Tomas Gonzalez 06/10/2019 6:11 AM
[2019-06-10 06:22] LABS: AGAP 13; ALB/GLOB RATIO 0.8; ALBUMIN 2.4 g/dL (3.5-5.0); ALKALINE PHOSPHATASE 708 U/L (32-122); BUN 22 mg/dL (8-22); CALCIUM 8.7 mg/dL (8.8-10.2); CHLORIDE 107 mmol/L (98-107); COSMO 285; CREATININE 0.8 mg/dL (0.7-1.2); ESTIMATED GFR > 60; GLUCOSE 104 mg/dL (70-104); GOT 83 U/L (10-34); GPT 69 U/L (10-44); POTASSIUM 3.5 mmol/L (3.5-5.1); SODIUM 141 mmol/L (136-145); TCO2 21 mmol/L (25-35); TOTAL PROTEIN 5.5 g/dL (6.3-8.3)
[2019-06-10] MEDS: MAXIPIME 1 GM in NS 50 ML IV SCH ×2 (07:37→20:35)
[2019-06-10] MEDS: NS 1,000 ML IV SCH (07:37)
--- NOTE | 2019-06-10 08:46 | PROGRESS NOTE ---
DATE: 06/10/2019 SUBJECTIVE: The patient has been successfully extubated yesterday. He is requiring 4 L of oxygen by nasal cannula. He is still somehow lethargic, but he answered very basic questions to me. He is not receiving any nutrition through NG tube yet; that has been held. OBJECTIVE: Vital Signs: Temperature 98.6 degrees, heart rate 61, respiratory rate 24, blood pressure 129/73, O2 saturation 100% on 4 L nasal cannula. General Examination: This is a chronically ill-looking, 74-year-old male, lying in bed in no acute distress. HEENT: Head is normocephalic, atraumatic. Neck: No JVD noted. No carotid bruits. No lymphadenopathy. No thyromegaly. Cardiovascular exam: S1, S2 heard. No murmurs, gallops, or rubs. Regular rate and rhythm. Respiratory exam: Coarse breath sounds still noted in both pulmonary fofana, mostly in both bases. Patient is not using any accessory muscles or having work of breathing. Abdomen: Soft. Nontender to palpation. Bowel sounds present. No organomegaly. Extremities: No clubbing, cyanosis or edema. Peripheral pulses present in both legs. Neurological exam: Patient is sleepy, but responds to verbal stimuli. The patient reports not being in pain. LABORATORY DATA: White cell count 16.57, hemoglobin 10.9, hematocrit 35.5, platelets 211. ABG that shows pH 7.36 with pCO2 40, PO2 142, and that was taken on nasal cannula 4 L/minute. BMP reveals normal creatinine with calcium 8.7. AST 83, ALT 69, alkaline phosphatase 708. ASSESSMENT AND PLAN: 1. Acute hypoxemic respiratory failure secondary to community-acquired pneumonia. The patient has been successfully extubated yesterday. Now requiring 4 liters of oxygen by nasal cannula. I think we will continue with the same management. Currently, he is on cefepime and Zyvox. On his white cell count, I see definite improvement from 20,000 to 16,000 today. The sputum culture reveals Haemophilus influenza. Will continue at this point only with cefepime. We will stop Zyvox. 2. Haemophilus influenza pneumonia on antibiotics as above. 3. Transaminitis. At admission, he was ordered abdominal ultrasound which reveals extensive metastatic disease with atrophy to the right kidney. At this point once this patient is more awake, we will consult Oncology. Apparently as per history and physical, he has not been diagnosed with any metastatic disease. 4. Hypertension. Blood pressure is under control. We will continue with the same management. 5. Acute kidney injury. That condition is completely resolved. Creatinine and BUN are completely back to normal. 6. Nutritional status: The patient is still sleepy. The patient has a nasogastric tube, but those feedings have not been restarted yet. We are going to check swallow test to see if this patient is safe to start him by mouth. He will start nutrition with clear liquid diet. If not, we will start nasogastric tube feedings. DISPOSITION: At this time, the patient is much more stable, so we will transfer him to the progressive care unit today. cc: Aditya Mckoy MD
--- NOTE | 2019-06-10 14:13 | PULMONOLOGY PROGRESS NOTE ---
DATE: 06/10/2019 SUBJECTIVE: Mr. Watson is lethargic, although he is awake. He does answer questions. He states he is feeling some better than he did last night. OBJECTIVE: Vital Signs: Blood pressure is 121/76, heart rate of 61, respirations 16, temperature 98.1 degrees axillary with O2 saturations 98 to 100 percent on 3 L nasal cannula. Eyes: Pupils are equal, round, react to light. EOMs are intact. Sclerae anicteric. HENT: Head is normocephalic, atraumatic. Mucous membranes are moist. Neck: Supple with trachea midline. Cardiovascular: Regular rate and rhythm. S1 and S2 appreciated. He does have some trace pretibial edema bilateral. Reports calves are nontender bilateral. Pulmonary: Rhonchi scattered throughout that somewhat clear to cough. Chest rises and falls symmetric with respiration. Gastrointestinal: Abdomen is soft, nontender, nondistended. Bowel sounds in all 4 quadrants. Neurologic: He is lethargic, but oriented. LABORATORY DATA: WBC is 16 with hemoglobin 10.9, hematocrit 35.5, and platelets 211,000. Sodium 141, potassium 3.5, BUN 22, creatinine 0.8 with a glucose of 104, AST 83, ALT 69, alkaline phosphatase of 708. ABGs pH is 7.36 with a pCO2 of 40, PO2 142, and bicarb of 22.8. He is on 4 L nasal cannula. Chest x-ray is reveals worsening basilar infiltrates. ASSESSMENT: This is a 74-year-old gentleman with 1. Acute hypoxemic respiratory failure. 2. Haemophilus influenzae pneumonia. 3. Abnormal liver function studies. 4. Acute renal injury. 5. Dementia. PLAN: 1. We will continue with the current antibiotic regimen of cefepime. 2. Continue with bronchial hygiene. 3. Acid suppression. Continue Protonix. Dictated by TUTU Gross for Buddy Gary MD cc: TUTU Gross MD
[2019-06-10] MEDS: PROTONIX IV SCH (20:34)
[2019-06-11 05:29] LABS: ALLEN TEST YES; BE -2.2 mmoll (-3.0-3.0); BLOOD TYPE ARTERIAL; HCO3-(ACT) 23.1 mmoll (20.0-26.0); METHB 1.3 % (0.0-1.5); O2HB 95.4 % (95.0-99.0); PCO2(98.6) 35 mmHg (35-45); PO2(98.6) 94 mmHg (60-100); SAMPLE BLOOD; SAO2 97.6 % (95.0-100.0); THB 20.9 g/dL (11.5-17.4)
[2019-06-11 05:30] LABS: MODALITY CANNULA
[2019-06-11] MEDS: NS 1,000 ML IV SCH (06:25)
[2019-06-11 06:31] LABS: HEMATOCRIT 37.9 % (42.0-52.0); HEMOGLOBIN 11.9 g/dL (14.0-18.0); MCH 31.1 PG (27-31); MCHC 31.4 g/dL (33-37); MPV 11.8 FL (7.4-10.4); RBC 3.83 XMIL (4.7-6.1); RDW 13.9 % (11.5-14.5); WBC 14.69 X1000 (4.8-10.8)
[2019-06-11 06:35] LABS: AGAP 13; ALBUMIN 2.5 g/dL (3.5-5.0); BUN 22 mg/dL (8-22); CHLORIDE 114 mmol/L (98-107); COSMO 302; CREATININE 0.8 mg/dL (0.7-1.2); ESTIMATED GFR > 60; GLUCOSE 83 mg/dL (70-104); POTASSIUM 3.6 mmol/L (3.5-5.1); SODIUM 151 mmol/L (136-145); TCO2 24 mmol/L (25-35)
--- NOTE | 2019-06-11 07:52 | Diag Imaging Result Doc PS360 ---
EXAM: CHEST-PORTABLE INDICATION: respiratory failure TECHNIQUE: One view COMPARISON: 06/10/2019 FINDINGS: There appears to be slight improvement of consolidation at the left lower lung zone. Consolidation at the right lower lung zone is essentially stable. There are essentially stable small effusions. No new consolidation is identified. Cardiac silhouette is stable. IMPRESSION: Interval marginal improvement of consolidation on the left. Stable chest, otherwise. Electronically signed by Esteban Jeter 06/11/2019 7:50 AM
[2019-06-11] MEDS: MAXIPIME 1 GM in NS 50 ML IV SCH ×2 (08:53→20:14)
--- NOTE | 2019-06-11 11:06 | PROGRESS NOTE ---
DATE: 06/11/2019 SUBJECTIVE: Patient has been successfully extubated 2 days ago. He is definitely more awake and alert. He is eating okay. Answer basic questions. OBJECTIVE: Vital Signs: Temperature 98.0 degrees, heart rate 68, respiratory rate 18, blood pressure 158/72, O2 saturation 100% on 3 liters of oxygen by nasal cannula. General Examination: This is a chronically ill-looking, 74-year-old male, lying in bed in no acute distress. Cardiovascular exam: S1, S2 heard. No murmurs, gallops, or rubs. Regular rate and rhythm. Respiratory exam: Coarse breath sounds noted in both pulmonary fofana mostly noted in both bases. Patient not using any accessory muscles or having work of breathing. Abdomen: Soft, nontender to palpation. Bowel sounds present. No organomegaly. Extremities: No clubbing, cyanosis, or edema. Peripheral pulses present in both legs. Neurological exam: Patient is more awake and alert. Moves 4 extremities. LABORATORY DATA: White cell count is 14.69, hemoglobin 11.9, hematocrit 37.9, platelets 243. An ABG on 3 L nasal cannula is completely normal with pH 7.42 pCO2 35, PO2 94. Sodium 151. Phosphorus 2.0. ASSESSMENT AND PLAN: 1. Acute hypoxemic respiratory failure secondary to Haemophilus influenza pneumonia. The patient is on cefepime now. White cell count continues to improve. Actually this patient has been receiving this cefepime for 5 days. We will continue with the same management. Oxygen supplementation is also getting better requiring only 2 L of oxygen by nasal cannula. We will continue with the same management. 2. Transaminitis. As we mentioned before, the ultrasound revealed metastatic disease in the liver with atrophy of the right kidney. I think at this point we are going to consult Oncology, Dr. Plan of care discussed with Dr. Conley.,and we will see what he has to say. 3. Hypertension. Blood pressure is under control. We will continue with the same management. 4. Acute kidney injury. Completely resolved. 5. Nutritional status. Patient is eating clear liquid diet. We are going to advance as tolerated. 6. Disposition: This patient was much more stable. We have consulted physical therapy, occupational therapy. Will send this patient to a regular floor. cc: Aditya Mckoy MD
--- NOTE | 2019-06-11 13:34 | PULMONOLOGY PROGRESS NOTE ---
DATE: 06/11/2019 SUBJECTIVE: Mr. Watson is awake and alert. He is eating. He is watching TV. He states he may feel some better than yesterday. OBJECTIVE: Vital signs: Blood pressure is 158/72 with a heart rate of 68, respirations 18, temperature is 98.2 degrees with O2 saturations 100% on 3 L nasal cannula. HEENT: Head is normocephalic, atraumatic. Mucous membranes are moist. Eyes: Pupils equal, round, react to light. EOMs are intact. Sclerae are anicteric. Neck: Supple with trachea midline. Cardiovascular: Regular rate and rhythm. S1 and S2 appreciated. He reports calves are nontender bilateral. Pulmonary: Rhonchi are scattered throughout. They are less today than yesterday. They continue to somewhat clear to cough. Chest rises and falls symmetric with respiration. Gastrointestinal: Abdomen is soft, nontender, nondistended with bowel sounds in all 4 quadrants. Extremities: Trace pretibial edema bilateral lower extremities. No clubbing or cyanosis. LABORATORY DATA: WBC is 14.6 with hemoglobin 11.9, hematocrit 37.9, and platelets 243,000. Sodium 151, potassium 3.6, BUN 22, creatinine 0.8 with a glucose of 83. ABGs: pH is 7.4 with a pCO2 of 35, PO2 of 94, bicarb of 23.1. This is on 3 L nasal cannula. IMAGING: Chest x-ray revealed interval marginal improvement of consolidation on the left. ASSESSMENT: This is a 74-year-old gentleman with: 1. Acute hypoxemic respiratory failure. 2. Haemophilus influenzae pneumonia. 3. Abnormal liver function studies. 4. Acute renal injury. 5. Dementia. PLAN: 1. We will continue with the current antibiotic regimen per primary team. 2. Continue bronchial hygiene. 3. Acid suppression. Continue Protonix. Dictated by TUTU Gross for Buddy Gary MD cc: TUTU Gross MD
[2019-06-11] MEDS: PROTONIX IV SCH (20:15)
[2019-06-11] MEDS: SODIUM CHLORIDE 0.9% INJ SCH (20:15)
[2019-06-12 03:43] LABS: ALLEN TEST YES; BE -0.1 mmoll (-3.0-3.0); BLOOD TYPE ARTERIAL; HCO3-(ACT) 24.7 mmoll (20.0-26.0); PCO2(98.6) 36 mmHg (35-45); PO2(98.6) 54 mmHg (60-100); SAMPLE BLOOD; SAO2 92.5 % (95.0-100.0); THB 11.9 g/dL (11.5-17.4); pH(98.6) 7.43 (7.35-7.45)
[2019-06-12 03:44] LABS: MODALITY ROOM AIR
[2019-06-12 03:50] LABS: O2HB 89.7 % (95.0-99.0)
[2019-06-12] MEDS: NS 1,000 ML IV SCH (05:12)
[2019-06-12 06:46] LABS: HEMATOCRIT 37.9 % (42.0-52.0); HEMOGLOBIN 11.7 g/dL (14.0-18.0); MCH 30.2 PG (27-31); MCHC 30.9 g/dL (33-37); MCV 97.9 FL (81-99); MPV 11.3 FL (7.4-10.4); RBC 3.87 XMIL (4.7-6.1); WBC 15.01 X1000 (4.8-10.8)
[2019-06-12 07:07] LABS: AGAP 13; ALBUMIN 2.4 g/dL (3.5-5.0); BUN 22 mg/dL (8-22); CHLORIDE 115 mmol/L (98-107); COSMO 303; CREATININE 0.8 mg/dL (0.7-1.2); ESTIMATED GFR > 60; GLUCOSE 93 mg/dL (70-104); PHOSPHORUS 2.7 mg/dL (2.7-4.5); POTASSIUM 3.6 mmol/L (3.5-5.1); SODIUM 151 mmol/L (136-145); TCO2 23 mmol/L (25-35)
--- NOTE | 2019-06-12 08:10 | Diag Imaging Result Doc PS360 ---
EXAM: CHEST-PORTABLE INDICATION: respiratory failure TECHNIQUE: One view COMPARISON: 06/11/2019 FINDINGS: The right lower lobe airspace consolidation is approximately stable. There is a stable small effusion on the right. The milder consolidation on the left has improved to near resolution. The left effusion has decreased. No new consolidation is identified. Cardiac silhouette is stable. IMPRESSION: Interval improvement on the left. Electronically signed by Esteban Jeter 06/12/2019 8:08 AM
[2019-06-12] MEDS: MAXIPIME 1 GM in NS 50 ML IV SCH ×2 (08:16→22:57)
--- NOTE | 2019-06-12 12:32 | HEMO/ONC CONSULTATION ---
DATE: 06/12/2019 REASON FOR CONSULTATION: Extensive hepatic metastasis. HISTORY OF PRESENT ILLNESS: Mr. Watson is a 74-year-old male with a history of dementia who was brought to the emergency room on 06/06/2019 after his had called 911. She stated that he has had 2 days of shortness of breath, weakness, fevers, chills, and falling. The patient has dementia and was brought into the ER by himself due to the quarantine. There was difficulty getting information out of the patient due to his dementia. The patient has not previously been to our hospital. Upon his arrival to the ER, the patient had gross purulence noted to his nose and mouth in the emergency room and continued to have progressive worsening respiratory failure that required intubation and mechanical ventilation on 06/06/2019. The patient was tested for Covid and found negative. He was admitted to the ICU for suspicion of community-acquired pneumonia and placed on broad-spectrum antibiotics. His further evaluation revealed acute kidney injury with a creatinine of 1.9 and transaminitis with hyperbilirubinemia. The patient was also given an OG and nutrition was started as well. In the emergency department, an abdominal ultrasound was ordered due to elevated liver enzymes. The patient was found to have extensive hepatic metastatic disease and atrophy of the right kidney. The patient was admitted to the ICU for further management. He was extubated on 06/09/2019 and has continued to show some clinical improvement in regards to his pneumonia. PAST MEDICAL HISTORY: Dementia and hypertension. SURGICAL HISTORY: Unknown. SOCIAL HISTORY: Unknown. ALLERGIES: No known drug allergies. MEDICATIONS: Lisinopril/hydrochlorothiazide. REVIEW OF SYSTEMS: Unable to be obtained. VITAL SIGNS: Temperature 98.0 degrees, pulse rate 78, respiratory rate 18, blood pressure 138/81, O2 saturation 100% on nasal cannula at 3 L. He is in 0/10 pain. PHYSICAL EXAMINATION: General: The patient is in no acute distress. He is unable to answer any questions appropriately. HEENT: Sclerae anicteric. PERRLA. Oral mucosa is normal. OG tube removed. Cardiovascular: Regular rate and rhythm. Normal S1, S2. Respiratory: Scattered rhonchi. Normal respiratory effort. Gastrointestinal: Abdomen is soft, nontender, nondistended. Bowel sounds positive. Extremities: Mild lower extremity edema noted. Multiple bruising sites noted. IV infiltration noted to current iv site. Lymphatic: No lymphadenopathy noted to neck, axilla or groin areas. LABORATORY DATA: Covid-19 negative. WBCs 15.01, hemoglobin 11.7, hematocrit 37.9, platelet count 238,000. Sodium 151, potassium 3.6, creatinine 0.8. IMAGING: Abdominal ultrasound on 06/06/2019 extensive hepatic metastatic disease. Atrophy of the right kidney. Left kidney somewhat hypertrophic. No splenomegaly. Chest x-ray on 06/12/2019, stable small effusion on the right. Consolidation on the left with near resolution. Left effusion decreased. ASSESSMENT AND PLAN: 1. Acute hypoxemic respiratory failure secondary to Haemophilus influenzae pneumonia. The patient continues to be on cefepime. His oxygen requirements are decreasing. 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 2. Transaminitis with hepatic metastatic disease Primary unknown at this time.Evaluating CT chest/abd/pelvis, CEA, CA19-1, ESR, LDH and CRP. CT guided liver biopsy suggested. 3. Deep venous thrombosis prophylaxis. The patient should have on sequential compression devices. It appears the patient was on Lovenox. Not sure why anticoagulation was stopped. May need to reconsider. 4. Hypernatremia. Aware. Continue medical management. Dictated by TUTU Jaeger for Miguel Conley MD cc: Miguel Conley MD [facility]ATRIC CENTERThelma
[2019-06-12 14:03] LABS: C REACTIVE PROT QUANT 91.45 mg/L (0.00-5.00)
--- NOTE | 2019-06-12 15:31 | Diag Imaging Result Doc PS360 ---
EXAM: CT THORAX/ABD/PELVIS W/WO CON INDICATION: hepatic mets TECHNIQUE: This exam was performed using automated exposure control, adjustment of mA or kV according to patient size, and/or use of iterative reconstruction technique. COMPARISON: None. FINDINGS: CHEST: There is an airspace consolidation in the right middle lobe indicating pneumonia. There is a moderate-sized right pleural effusion and a small left effusion and there is atelectasis involving both lower lobes, likely with superimposed infiltrate as well. There is no pneumothorax. There is no cardiomegaly. There are small shotty nonspecific mediastinal lymph nodes that are probably reactive. There is mild bronchial mucous plugging at the lung bases and there is bronchial mucosal thickening indicating bronchitis. There is nothing to suggest bony metastatic disease to the thorax. ABDOMEN/PELVIS: There are innumerable masses seen throughout the liver parenchyma consistent with diffuse metastatic disease. For reference, the largest conglomerate mass is at the posterior aspect of the right hepatic lobe measuring up to 8.8 x 7.1 cm axially. There is trace ascites surrounding the liver and layering in the pelvis. The gallbladder is partially contracted and is essentially unremarkable, otherwise. The spleen, pancreas, and adrenal glands are unremarkable. There is marked right renal atrophy. The left kidney is unremarkable. The urinary bladder is largely nondistended. The urinary bladder wall is thickened, which is in part due to underdistention. However, there is also some pericystic stranding. A component of cystitis is possible. There is a very small inguinal hernia on the left containing only fat. There is moderate uncomplicated sigmoid colonic diverticulosis. By CT, I can detect no discrete colonic mass or wall thickening. No small bowel wall thickening or bowel obstruction is identified. The stomach is grossly unremarkable as imaged. There is extensive aortoiliac atherosclerotic calcification. There is no evidence of aortic aneurysm. No significant abdominal or pelvic lymphadenopathy is appreciated. There is body wall anasarca. There is nothing that would suggest local bony metastatic disease to the abdomen or pelvis. IMPRESSION: 1.Innumerable hepatic masses highly suggestive of metastatic disease from an unknown primary. 2.Trace ascites tracking around the liver and layering in the pelvis. 3.Thickened urinary bladder wall diffusely with surrounding inflammatory stranding suggestive of cystitis. 4.The body wall anasarca. 5.Right middle lobe pneumonia and bilateral pleural effusions with bilateral lower lobe atelectasis, likely with superimposed pneumonia. 6.Mild lower lobe bronchial mucous plugging and bronchitis. 7.No evidence of thoracic metastatic disease. Electronically signed by Esteban Jeter 06/12/2019 3:28 PM
--- NOTE | 2019-06-12 15:44 | PROGRESS NOTE ---
DATE: 06/12/2019 INTERVAL HISTORY: Patient's respiratory status roughly stable. Does appear to have some room to wean oxygen. Quite confused today. No acute events overnight. REVIEW OF SYSTEMS: Difficult to obtain secondary to patient's mental status. LABS: WBC 15.0, hemoglobin 11.7, hematocrit 37.9, platelets 238,000. ABG with pH 7.43, pCO2 36, PO2 of 54, on room air. Sodium 151, potassium 3.6, BUN 22, creatinine 0.8. CEA 295.4. IMAGING: Chest x-ray with stable right lower lobe consolidation, slight improvement on the left. CT chest, abdomen, and pelvis pending. VITAL SIGNS: T-max 98.6 degrees, pulse 78, respirations 18, blood pressure 138/81, O2 saturation 100% on 3 L by nasal cannula. PHYSICAL EXAMINATION: General: No acute distress. Vital signs: As above. HEENT: Normocephalic, atraumatic. Moist mucous membranes. Cardiovascular: Regular rate and rhythm currently. Pulmonary: Still pretty coarse throughout with a few scattered rhonchi, but largely clear to auscultation. Relatively comfortable at rest, but becomes visibly short of breath with mildly increased work of breathing with attempts at conversation. Abdomen: Soft, nontender, nondistended. Bowel sounds positive. Extremities: Peripheral pulses intact. No clubbing or cyanosis. Neurologic: Cranial nerves grossly intact. No clear focal deficits, although patient does not follow commands very well currently. Psychiatric: Patient is awake and alert and gives verbal responses, but they are frequently difficult to understand and frequently do not make much sense. Appears to be likely oriented to person only. Follows commands intermittently at best. ASSESSMENT AND PLAN: 1. Pneumonia, acute hypoxic respiratory failure. Sputum culture grew Haemophilus influenzae. Blood cultures no growth to date. Patient did require intubation after admission but has been off the vent for several days. Oxygenation actually looks pretty good. Saturations are excellent on only 3 L of oxygen, but clinically his respiratory status is a little more tenuous. He appears to become short of breath with even just conversation much less any kind of exertion. I strongly suspect that he will need to rehab on discharge, but we will see what he does over the next couple days. Continue antibiotics with cefepime for now. Leukocytosis improved from admission, but slightly increased from yesterday. We will keep the above antibiotic for now but if white count continues to go up, we may have to adjust that. 2. Liver metastasis. Incidental loading on imaging of multiple liver lesions, favored to be metastasis. Primary unknown. Oncology on board and doing some additional tests. We will see if we can get a hold of family to talk about how aggressive they would want to be with workup and treatment of this. 3. Acute kidney injury, resolved. 4. Dementia. Uncertain of his exact baseline but pretty confused today. Continue to monitor and reorient as possible. 5. Hypernatremia. Fairly mild but still a little high today. Will monitor for 1 more day but if it worsens tomorrow, we will likely have to start him on a little bit of half-normal saline. 6. Hypertension. Acceptable control of blood pressure off of his home lisinopril hydrochlorothiazide. If it becomes markedly elevated, we will consider restarting 1 of those.
--- NOTE | 2019-06-12 18:19 | PULMONOLOGY PROGRESS NOTE ---
DATE: 06/12/2019 SUBJECTIVE: The patient states he is feeling better today. His appetite is increasing. PHYSICAL EXAMINATION: Vital Signs: Blood pressure is 138/81, with a heart rate of 78, respirations are 18, temperature is 98 degrees oral, O2 saturations are 97 to 100% on 3 L nasal cannula. Cardiovascular: Regular rate and rhythm. S1 and S2 appreciated. No murmur. Pulmonary: Breath sounds are coarse throughout. Chest rises and falls symmetrically with respiration. He does have some increased work of breathing while up walking in the room. Gastrointestinal: Abdomen is soft, nontender, nondistended. Bowel sounds in all 4 quadrants. Neurologic: He is alert and oriented x3. LABS: WBC is 15, with hemoglobin 11.7, hematocrit 37.9, and platelets of 238,000. Sodium 151, potassium 3.6, BUN 22, creatinine 0.8, with glucose of 93. CEA is 295.4 with an LDH of 1,482 and a CRP of 91.45. ASSESSMENT: This is a 74-year-old gentleman with: 1. Acute hypoxemic respiratory failure. 2. Haemophilus influenzae pneumonia. 3. Hepatic masses suggestive of metastatic disease from unknown primary per CT scan. 4. Dementia. PLAN: 1. We will continue with his current antibiotic regimen. 2. Continue bronchial hygiene. 3. Continue Protonix for acid suppression. Dictated by TUTU Gross for Buddy Gary MD cc: TUTU Gross MD [facility]
[2019-06-12] MEDS: PROTONIX IV SCH (22:57)
[2019-06-13 05:54] LABS: ALLEN TEST YES; BLOOD TYPE ARTERIAL; HCO3-(ACT) 25.6 mmoll (20.0-26.0); METHB 0.9 % (0.0-1.5); O2(CT) 17.8 mL/dL (15.0-23.0); O2HB 95.1 % (95.0-99.0); PCO2(98.6) 38 mmHg (35-45); PO2(98.6) 82 mmHg (60-100); SAMPLE BLOOD; SAO2 97.6 % (95.0-100.0); THB 13.3 g/dL (11.5-17.4); pH(98.6) 7.43 (7.35-7.45)
[2019-06-13 05:57] LABS: MODALITY CANNULA
[2019-06-13 06:49] LABS: HEMATOCRIT 37.7 % (42.0-52.0); HEMOGLOBIN 11.6 g/dL (14.0-18.0); MCH 30.1 PG (27-31); MCHC 30.8 g/dL (33-37); MCV 97.9 FL (81-99); MPV 10.8 FL (7.4-10.4); RBC 3.85 XMIL (4.7-6.1); WBC 16.71 X1000 (4.8-10.8)
[2019-06-13 07:09] LABS: AGAP 11; ALBUMIN 2.6 g/dL (3.5-5.0); BUN 18 mg/dL (8-22); CALCIUM 8.8 mg/dL (8.8-10.2); CHLORIDE 113 mmol/L (98-107); COSMO 299; CREATININE 0.8 mg/dL (0.7-1.2); ESTIMATED GFR > 60; GLUCOSE 87 mg/dL (70-104); PHOSPHORUS 2.7 mg/dL (2.7-4.5); POTASSIUM 3.7 mmol/L (3.5-5.1); SODIUM 150 mmol/L (136-145); TCO2 26 mmol/L (25-35)
--- NOTE | 2019-06-13 07:32 | Diag Imaging Result Doc PS360 ---
EXAM: CHEST-PORTABLE INDICATION: respiratory failure TECHNIQUE: One view COMPARISON: 06/12/2019 FINDINGS: Right basilar consolidation is approximately stable given slight differences in positioning. There is a stable small right effusion. No new consolidation is appreciated. Cardiac silhouette is stable. IMPRESSION: Essentially stable chest. Electronically signed by Esteban Jeter 06/13/2019 7:30 AM
--- NOTE | 2019-06-13 10:45 | Diag Imaging Result Doc PS360 ---
CT GUIDED BX LIVER - 06/13/2019 INDICATION: hepatic mets TECHNIQUE: The risks and benefits of the procedure were discussed with the patient, and the patient's . All questions were answered. Written and verbal informed consent was obtained. Overlying skin was prepped and draped in sterile fashion. Anesthesia was achieved with injection of 10 cc of 1% lidocaine. COMPARISON: CT from 06/12/2019 FINDINGS: The right lobe of the liver was chosen for biopsy. The 18-gauge [place] biopsy needle set was used. Seven biopsy specimens were obtained. The needle was withdrawn intact. The patient reported no symptoms from the procedure. IMPRESSION: Successful and uncomplicated CT-guided liver mass biopsy. Electronically signed by Good Costello 06/13/2019 10:42 AM
[2019-06-13] MEDS: MAXIPIME 1 GM in NS 50 ML IV SCH ×2 (10:55→21:37)
[2019-06-13] MEDS: NS 1,000 ML IV SCH (13:17)
--- NOTE | 2019-06-13 13:32 | HEMO/ONC PROGRESS NOTE ---
DATE: 06/13/2019 SUBJECTIVE: Mr. Watson was asleep when I came in this morning. He awoke easily fully to my voice. The patient was unable to answer any questions this morning. He repeated the end of my questions back to me. OBJECTIVE: Vital Signs: Temperature 98.3 degrees, pulse rate 56, respiratory rate 16, blood pressure 149/66, and O2 saturation 99% on nasal cannula at 3 liters. He is in 0/10 pain. General: On physical exam, the patient is in no acute distress. He is pleasantly confused. HEENT: Sclerae are anicteric. PERRLA. Cardiovascular: Regular rate and rhythm. Respiratory: Coarse breath sounds throughout. Normal respiratory effort. Gastrointestinal: The abdomen is soft, nontender, nondistended. Positive bowel sounds. Extremities: Mild lower extremity edema. Lower extremities are in pressure boots. SKIN: Upper extremities have multiple bruises. He appears to have psoriatic plaque like spots on his upper chest. Lymphatic: No lymphadenopathy noted. LABORATORY: WBCs 16.71, hemoglobin 11.6, hematocrit 37.7, platelet count 231,000. ESR 97. Sodium 150, LDH 1482, CRP 91.45, CEA 295. PSA 1.08. Hepatitis panel negative. IMAGING: Chest x-ray, there is a stable small right effusion. No new consolidation. Stable. PROCEDURES: The patient had a CT-guided liver biopsy that was successful this morning. ASSESSMENT AND PLAN: 1. Acute hypoxemic respiratory failure secondary to Haemophilus influenzae pneumonia. The patient is continuing treatment with intravenous cefepime. His oxygen requirements are decreasing. Continue medical management per hospitalist and taper and floater. 2. Transaminitis with hepatic metastatic disease. Primary remains unknown. The patient had a CT- guided liver biopsy this morning. We are continuing to await pathology. The patient has an elevation in CEA, ESR, LDH, and CRP. We will continue to monitor closely. 3. Deep vein thrombosis prophylaxis. The patient has on sequential compression devices. 4. Hypernatremia. The patient's sodium remains elevated. Continue medical management. Dictated by TUTU Jaeger for Miguel Mathew MD Diffuse liver metastasis. Patient has significant dementia. No family available. Doubt he is a candidate for chemotherapy. Anyway we will wait for path and discuss further management accordingly. Miguel mathew MD cc: Miguel Mathew MD [facility]TDD
--- NOTE | 2019-06-13 20:55 | PROGRESS NOTE ---
DATE: 06/13/2019 INTERVAL HISTORY: No acute events overnight. Mr. Watson was sleepy at the time of my evaluation. He does not engage in meaningful conversation, though he does have occasional cough, appears nonproductive. OBJECTIVE: Vitals: Temperature of 98.8 degrees, pulse 64, respiratory rate 16, blood pressure 142/67, saturating 99% on 2 liters nasal cannula. General: Not in acute distress. HEENT: Oral cavity is moist. Air entry bilaterally equal. No wheeze or rhonchi. He had crackles infrascapular region. Cardiovascular: S1, S2 normal. No murmur or gallop. Abdomen: Soft, nontender. Extremities: He has mild lower extremity edema. Neurological: He is alert. He was able to move both upper extremities above ground level. He does not move his lower extremity. He is drowsy but arousable, alert. He could answer simple questions occasionally but more or less appears confused. LABORATORY DATA: WBC 16,000, hemoglobin 11.6, platelets 231,000. His oxygenation is 82 on nasal cannula. He has hypernatremia, hyperchloremia. He had elevated LDH. He underwent liver biopsy today. ASSESSMENT AND PLAN: 1. Acute hypoxic respiratory failure due to bilateral lower lobe Haemophilus influenzae pneumonia predominantly right lower lobe. He has been on intravenous cefepime that I will continue. I will give him intravenous Lasix tomorrow morning for his right-sided pleural effusion. 2. Accidentally detected liver metastasis status post liver biopsy. Oncology team on board. She has elevated LDH and CEA level. 3. Suspected dementia. His baseline is not known at the moment. I will continue to monitor him inside the hospital and reorient as possible. 4. Hypernatremia, hyperchloremia likely because of intravenous normal saline that he has been receiving. I will give him intravenous Lasix and follow-up repeat electrolytes the day after tomorrow. 5. He has history of essential hypertension, but currently most of his blood pressure has been acceptable range. He is listed to taking hydrochlorothiazide lisinopril, which I will resume. DISPOSITION: Monitor patient inside the hospital. Once his oxygen requirement is stable, we can potentially change antibiotics to oral, and he may need Repair Supervisor for placement eventually. cc: Best Stallworth MD [facility]
[2019-06-13] MEDS: PRINZIDE 10/12.5MG PO SCH (21:55)
--- NOTE | 2019-06-13 22:23 | PULMONOLOGY PROGRESS NOTE ---
DATE: 06/13/2019 SUBJECTIVE: The patient is awake and alert. He will not respond to questions. OBJECTIVE: Vital Signs: The patient has been afebrile for the last 24 hours. Blood pressure 152/67, heart rate 64, respiratory rate 16. HEENT: Pupils are equal. Oropharynx appears clear. Neck: Supple. Chest: Reveals right greater than left basilar infiltrate without change. LABORATORY DATA: White blood count 16.7, hemoglobin 11.6, platelet count 231,000. IMPRESSION: A 74-year-old with 1. Haemophilus influenzae. 2. Hypoxemic respiratory failure. 3. Dementia. 4. Evidence of metastatic disease to the liver. 5. Marked increase in CEA. DISCUSSION: A 74-year-old with problems outlined above. Performance status appears to be poor. I suspect that he is not going to be a good candidate for aggressive treatment. PLAN: 1. Continue current antibiotic regimen. 2. Await liver biopsy for definitive diagnosis. 3. Consider palliative care nursing evaluation. cc: Buddy Gary MD
[2019-06-14 03:21] LABS: ALLEN TEST YES; BE 3.2 mmoll (-3.0-3.0); BLOOD TYPE ARTERIAL; HCO3-(ACT) 27.4 mmoll (20.0-26.0); METHB 1.3 % (0.0-1.5); O2(CT) 16.2 mL/dL (15.0-23.0); PCO2(98.6) 42 mmHg (35-45); PO2(98.6) 98 mmHg (60-100); SAMPLE BLOOD; SAO2 98.8 % (95.0-100.0); THB 11.9 g/dL (11.5-17.4); pH(98.6) 7.43 (7.35-7.45)
[2019-06-14 03:22] LABS: MODALITY CANNULA
[2019-06-14] MEDS ORDERED: LASIX IV ONE (06:00)
[2019-06-14] MEDS ORDERED: CALMOSEPTINE OINTMENT TOP PRN (06:08)
[2019-06-14] MEDS: PRILOSEC PO SCH (06:26)
--- NOTE | 2019-06-14 07:06 | Diag Imaging Result Doc PS360 ---
CHEST-PORTABLE - 06/14/2019 INDICATION: respiratory failure COMPARISON: 06/13/2019 FINDINGS: Stable dense infiltrate in the right lung base. Stable small right and trace left pleural effusions. Stable COPD. Heart size remains normal. IMPRESSION: No change from prior. Electronically signed by Good Costello 06/14/2019 7:04 AM
[2019-06-14 07:29] LABS: HEMATOCRIT 38.7 % (42.0-52.0); MCH 30.5 PG (27-31); MCV 98.2 FL (81-99); MPV 10.7 FL (7.4-10.4); RBC 3.94 XMIL (4.7-6.1); RDW 14.1 % (11.5-14.5); WBC 17.87 X1000 (4.8-10.8)
[2019-06-14 07:52] LABS: AGAP 13; ALBUMIN 2.6 g/dL (3.5-5.0); BUN 17 mg/dL (8-22); CALCIUM 8.9 mg/dL (8.8-10.2); CHLORIDE 106 mmol/L (98-107); COSMO 290; CREATININE 0.8 mg/dL (0.7-1.2); ESTIMATED GFR > 60; GLUCOSE 101 mg/dL (70-104); PHOSPHORUS 2.6 mg/dL (2.7-4.5); POTASSIUM 3.3 mmol/L (3.5-5.1); SODIUM 145 mmol/L (136-145); TCO2 26 mmol/L (25-35)
[2019-06-14] MEDS: PRINZIDE 10/12.5MG PO SCH (08:49)
[2019-06-14] MEDS: MAXIPIME 1 GM in NS 50 ML IV SCH ×3 (10:50→22:36)
--- NOTE | 2019-06-14 15:26 | HEMO/ONC PROGRESS NOTE ---
DATE: 06/14/2019 SUBJECTIVE: Mr. Watson remains about the same this morning. He gives one-word answers to some of my questions this morning. Sometimes, he repeated the last word. Sometimes, it appeared he actually gave me an answer. He denied pain. He cannot tell me his name. OBJECTIVE: Vital Signs: Temperature 99.2 degrees, pulse rate 69, respiratory rate 17, blood pressure 125/55, O2 saturation 91% on nasal cannula at 3 L. He is in 0/10 pain. Physical Examination: General: The patient is in no acute distress. The patient is pleasantly confused. Respiratory: Coarse breath sounds throughout. Normal respiratory effort. Cardiovascular: Regular rate and rhythm. Gastrointestinal: Soft, nontender, nondistended. Extremities: Mild lower extremity edema noted. Neurological: The patient does answer some simple questions with one word. He does not follow commands well. Laboratory: WBCs 17.87, hemoglobin 12.0, hematocrit 38.7, platelet count 259,000. Sodium 145, potassium 3.3, phosphorus 2.6, albumin 2.6. CA 19-9 of 3460. Pathology: CT-guided liver biopsy yesterday revealed poorly-differentiated hyperchromatic malignancy, suspicious for small cell neuroendocrine carcinoma. ASSESSMENT AND PLAN: 1. Acute hypoxemic respiratory failure secondary to Haemophilus influenzae pneumonia. The patient remains on intravenous cefepime for the treatment of his pneumonia. He is breathing well on his own via nasal cannula. His oxygen demand is decreasing. Continue medical management. 2. 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 The patient has a significantly elevated CA 19-9 and CEA. Pathology reveals small cell neuroendocrine carcinoma. The patient is not a candidate for chemotherapy. His performance status is rather poor. He has significant dementia. At this time, we are going to recommend comfort care for the patient. 3. Deep venous thrombosis prophylaxis. The patient has on sequential compression devices. 4. Hypernatremia. This has resolved today. Continue medical management. 5. We will continue to monitor peripherally. Please contact us if needed. Dictated by TUTU Jaeger for Miguel Conley MD cc: Miguel Conley MD
--- NOTE | 2019-06-14 15:27 | PROGRESS NOTE ---
DATE: 06/14/2019 I have seen and examined Mr. Watson today. Mr. Watson himself was requesting when he can be discharged. OBJECTIVE: Vital signs: Blood pressure is 125/55, pulse of 69, respirations 17, temperature 99.7 degrees. Patient is saturating 91% on 3 L. General: Mr. Watson is a 74-year-old elderly gentleman. He is sitting up in the chair at the bedside. HEENT: Mucosa is slightly pale. Anicteric. Acyanotic. Neck: Supple. The patient looks remarkably wasted and frail. Chest: Air entry was bilaterally reduced with a few crackles posteriorly. Cardiovascular: Regular rate and rhythm. GI/Abdomen: Soft. Bowel sounds present. Extremities: No pedal edema. MARKET DEVELOPER: Patient is awake, alert, very frail and soft spoken but no apparent deficit. LABORATORY DATA: WBC is 17.87, hemoglobin of 12.0, platelet count of 259,000. Chemistry: Sodium is down to 145. LDH is remarkably elevated. C-reactive protein is also elevated. CEA is very elevated as well as CA-19-9 is 3460, which will be concerning for pancreatic disease. FNA showing poorly differentiated hyperchromatic malignancy suspicious for small cell neuroendocrine carcinoma. ASSESSMENT: 1. Acute hypoxemic respiratory failure. 2. Haemophilus influenzae pneumonia. The patient is on antimicrobials. 3. Diffuse metastatic liver cancer with pathology favoring poorly differentiated neuroendocrine etiology. Presumably lung could be primary. 4. Elevated cancer markers including CEA and CA-19-9. 5. Generalized weakness and deconditioning. The patient looks remarkably frail with extremely poor performance status. I have spoken with the oncologist, and he recommends that at his current state, the patient will not be able to tolerate any adjuvant therapy, and he would not recommend, and he recommends palliative/hospice discussions be held with the patient. I spoke extensively with Mr. Watson today. I am not 100% sure how much he is able to understand and process the information that we discussed. I am going to call palliative nurse also to talk to him. Mr. Watson, however, did tell me that he is okay with palliative/hospice. Unfortunately, he seems to be living alone, so I am not sure of his home situation. Hopefully, palliative nurse can help us with that. cc: Shivam Nesbitt MD
--- NOTE | 2019-06-14 19:37 | PULMONOLOGY PROGRESS NOTE ---
DATE: 06/14/2019 SUBJECTIVE: The patient is awake and alert. He is weak. OBJECTIVE: Vital Signs: The patient has been afebrile. Blood pressure 130/66, heart rate 96, respiratory rate 20, oxygen saturation 96%. HEENT: Pupils are equal and reactive. Oropharynx appears clear. Neck: Supple. Chest: Reveals dense infiltrate at the right base. Cardiac exam: S1, S2. Abdomen: Soft. Extremities: Without edema. DIAGNOSTIC DATA: Liver biopsy reveals poorly-differentiated malignancy suspicious for small cell neuroendocrine carcinoma. IMPRESSION: Unfortunate 74-year-old male with: 1. Haemophilus influenzae pneumonia. 2. Hypoxemic respiratory failure. 3. Component of dementia. 4. Poorly-differentiated hyperchromatic malignancy consistent with small cell carcinoma in the liver. PLAN: 1. Continue antibiotics. The patient could be transitioned to oral medications. 2. Anticipate discharge home with hospice. The patient's prognosis is poor, and he is not likely to tolerate chemotherapy given his age and frail status. cc: Buddy Gary MD
[2019-06-15] MEDS: PRILOSEC PO SCH ×2 (05:28→22:39)
[2019-06-15 05:41] LABS: ALLEN TEST YES; BE 9.3 mmoll (-3.0-3.0); BLOOD TYPE ARTERIAL; HCO3-(ACT) 32.1 mmoll (20.0-26.0); METHB 1.6 % (0.0-1.5); O2(CT) 16.5 mL/dL (15.0-23.0); O2HB 94.2 % (95.0-99.0); PCO2(98.6) 43 mmHg (35-45); PO2(98.6) 75 mmHg (60-100); SAMPLE BLOOD; SAO2 97.5 % (95.0-100.0); THB 12.4 g/dL (11.5-17.4)
[2019-06-15 05:42] LABS: MODALITY CANNULA
[2019-06-15 06:55] LABS: HEMATOCRIT 37.8 % (42.0-52.0); HEMOGLOBIN 12.1 g/dL (14.0-18.0); MCH 31.4 PG (27-31); MCV 98.2 FL (81-99); MPV 11.4 FL (7.4-10.4); RBC 3.85 XMIL (4.7-6.1); WBC 15.5 X1000 (4.8-10.8)
--- NOTE | 2019-06-15 07:16 | Diag Imaging Result Doc PS360 ---
CHEST-PORTABLE - 06/15/2019 INDICATION: respiratory failure COMPARISON: 06/15/2019 FINDINGS: There has been increase in the small right basilar pleural effusion. Stable adjacent infiltrate. Stable advanced COPD. The left lung is grossly clear. Heart size is normal. IMPRESSION: Slight increase in the size of the small right basilar pleural effusion. Electronically signed by Good Costello 06/15/2019 7:13 AM
[2019-06-15] MEDS: MAXIPIME 1 GM in NS 50 ML IV SCH ×2 (10:37→22:39)
[2019-06-15] MEDS: PRINZIDE 10/12.5MG PO SCH (10:37)
--- NOTE | 2019-06-15 15:28 | PROGRESS NOTE ---
DATE: 06/15/2019 SUBJECTIVE: I have seen and examined Mr. Watson today. He was actually sitting on the chair eating his lunch at the time of the encounter. He refers to be doing well, did not have any new complaints. OBJECTIVE: Vital signs: Blood pressure is 129/70, pulse of 100, respiration is 24, temperature of 97.9 degrees, patient is saturating 98%. General: Mr. Watson is a 74-year-old gentleman. He was sitting in the chair. He did not seem to be in any distress. He obviously looked more frail. HEENT: Mucosa is pink and moist. Anicteric. Acyanotic. Neck: Supple. Respiratory system: Air entry was bilaterally reduced, a few crackles in the posterior lung fofana. Cardiovascular: Regular rate and rhythm. GI: Abdomen is soft, nontender. Bowel sounds present. Extremities: No pedal edema. PRODUCE WRAPPER: Patient is awake, alert, will follow basic commands. He was not very easily forgetful. LABORATORY DATA: WBC is down to 15.50, hemoglobin is 12.1, platelet count of 219,000. No chemistry for this morning. Pathology report has been reviewed. ASSESSMENT: 1. Acute hypoxemic respiratory failure secondary to Haemophilus influenzae pneumonia. The patient continues to be on antimicrobial therapy. Blood cultures have been negative. 2. Diffuse liver metastases. Pathology favoring poorly differentiated neuroendocrine etiology. I spoke with Ms. Watson and she gave me a little background history that Mr. Watson was diagnosed with a lung cancer into 2019, was being followed up by Dr. Farooq Werner. He had multiple radiation therapy with Dr. Rice, the last one being in October 2018 and he was told that the lung cancer was cleared. Ms. Watson tells me that they did not do any biopsies, so they did not have a tissue diagnosis. I think taking the current pathology report into consideration, it is reasonable to assume that this is metastasis from the lung. 3. Generalized weakness and deconditioning with extremely poor performance status. 4. Alzheimer's disease. So in general, Mr. Watson has been consulted with palliative nurse, they have had discussions with the , and Mr. Watson will be discharged home tomorrow with [facility]. I have spoken extensively with the today on . I have updated her about the current plan. All her questions and concerns have been addressed. cc: Shivam Nesbitt MD
[2019-06-16] MEDS: PRILOSEC PO SCH ×2 (05:27→10:42)
[2019-06-16 05:34] LABS: ALLEN TEST YES; BE 11.4 mmoll (-3.0-3.0); BLOOD TYPE ARTERIAL; HCO3-(ACT) 33.7 mmoll (20.0-26.0); O2(CT) 16.1 mL/dL (15.0-23.0); O2HB 93.9 % (95.0-99.0); PCO2(98.6) 49 mmHg (35-45); PO2(98.6) 72 mmHg (60-100); SAMPLE BLOOD; SAO2 96.6 % (95.0-100.0); THB 12.2 g/dL (11.5-17.4); pH(98.6) 7.48 (7.35-7.45)
[2019-06-16 05:36] LABS: MODALITY CANNULA
--- NOTE | 2019-06-16 07:31 | Diag Imaging Result Doc PS360 ---
CHEST-PORTABLE - 06/16/2019 INDICATION: pneumonia COMPARISON: 06/15/2019 FINDINGS: Stable right basilar infiltrate and pleural effusion. The left lung remains clear. No new infiltrates. Heart size remains normal. IMPRESSION: No change from prior. Electronically signed by Good Costello 06/16/2019 7:29 AM
[2019-06-16] MEDS: MAXIPIME 1 GM in NS 50 ML IV SCH (10:46)
[2019-06-16] MEDS: PRINZIDE 10/12.5MG PO SCH (10:47)
[2019-06-16 11:32] VITALS: BP 112/63
--- NOTE | 2019-06-16 14:39 | DISCHARGE SUMMARY ---
ADMISSION DATE: 06/06/2019 DISCHARGE DATE: 06/16/2019 DISPOSITION: Home with [facility]. CONSULTATION DURING THIS ADMISSION: Heme-Onc was consulted. Patient was seen by Dr. Conley. INVASIVE PROCEDURES DONE DURING THIS ADMISSION: CT-guided liver biopsy was done by IR. IMAGING STUDIES OF SIGNIFICANCE: CT scan of the abdomen of the chest, abdomen, and pelvis done on 06/11 shows innumerable hepatic masses highly suggestive of metastatic disease from unknown primary. Pathology report shows a poorly differentiated hyperchromatic malignancy suspicious for small cell neuroendocrine carcinoma. ADMISSION DIAGNOSIS: 1. Acute hypoxemic respiratory failure. 2. Community-acquired pneumonia in the right lower lobe. 3. Dementia. 4. Hypertension. 5. Acute kidney injury. DIAGNOSIS AT THE TIME OF DISCHARGE: 1. Acute on hypoxemic respiratory failure. The patient continues to be on supplemental oxygen. 2. Haemophilus influenzae by pneumonia. The patient was treated with IV antibiotic. This has been transitioned to oral Levaquin to complete a total of 14 days. 3. Diffuse metastatic liver cancer with pathology favoring poorly differentiated neuroendocrine small cell cancer. The patient has a history of lung cancers. It is very possible that this is a metastasis from a lung cancer. 4. Elevated cancer markers including CEA and CA-19-9. 5. Generalized weakness and deconditioning. 6. Poor performance status with general frailty. DISCHARGE MEDICATIONS: 1. Hydrochlorothiazide with lisinopril. 2. Levofloxacin 500 for 7 more days. PRESENTING COMPLAINT: Shortness of breath. HISTORY OF PRESENT COMPLAINT: Mr. Watson is a 74-year-old gentleman who has history of dementia, hypertension, presented to the emergency room because of shortness of breath associated with productive cough, phlegm which is green and some wheezing. Upon presenting to the emergency room he was immediately put on 50% venturi mask because of significant hypoxemia. She he was thought to have community-acquired pneumonia, was started on broad-spectrum IV antibiotics and patient was admitted to the medical floor. HOSPITAL COURSE: Mr. Watson was admitted to the medical floor, started on broad-spectrum IV antibiotics, hydration, cultures were made and Pulmonary Medicine was consulted. Patient was seen by Dr. Gary. Throughout the hospital course Mr. Watson continued to show steady improvement on the shortness of breath. He was transition to nasal cannula. His sputum culture came back positive for Haemophilus influenzae so antibiotics were tailored accordingly. The workup also showed innumerable masses in his liver, so a biopsy was done which revealed a small cell pathology. I spoke extensively with the on the phone who made me to understand that Mr. Watson was has been followed up by Dr. Farooq Werner for lung cancer and also sees Dr. Vicente for radiation in the past and that with this new diagnosis of small cell cancer in the liver, it is very reasonable to assume that it was coming from the lungs. Mr. Watson's shortness of breath got better to where we think it is stable for him to be discharged. DISPOSITION: He is currently going to go home on hospice, FOLLOW-UP INSTRUCTIONS: He is also going to follow up with his outpatient providers including his clinical coordinator, radiation oncologist and his primary care doctor, Dr. Clark. DISCHARGE INSTRUCTIONS: All the discharge instructions have been discussed with him and he voiced understanding. cc: Shivam Nesbitt MD
== END 2019-06-16 14:35 | disposition hospice, home (50) | DRG 871 ==
LOC: ED 09:57 → SUATTDRO 13:38 → ICU 13:38 → 2N 06-10 11:06 → 4N 06-11 14:39
PROVIDERS: ATTEND Internal Medicine